=== PATIENT | female | born 1955 | race Caucasian/White ===

== ENCOUNTER → 2018-12-04 | Outpatient (CLI) | payer BC ==
--- NOTE | 2018-12-04 17:51 | MR ---
EXAMINATION TYPE: MR shoulder RT wo con DATE OF EXAM: 12/04/2018 COMPARISON: Outside right shoulder x-ray November 21, 2018 HISTORY: Pain in right shoulder per order. Ongoing pain for 1 year per patient. TECHNIQUE: Multiplanar, multisequence imaging of the right shoulder is performed without contrast. FINDINGS: Examination was suboptimal as there is motion artifact degradation present. Repeat imaging was performed. Rotator Cuff: Distal supraspinatus and infraspinatus tendons are intact. Subscapularis tendon felt in tact. Rotator cuff muscle bulk preserved. Acromioclavicular Joint: Moderate narrowing and capsular hypertrophy. Mild spurring. Underlying fat p allison is effaced. Correlate clinically for underlying impingement. Type II downsloping acromion. Anter ior inferior tilting on sagittal images. Glenohumeral Joint: Moderate narrowing with small effusion. No significant spurring. Biceps Tendon: The long head of biceps is in normal location within bicipital groove. Bone marrow signal: Subchondral cystic change superior lateral humeral head. Other: No additional significant abnormality is appreciated. IMPRESSION: No rotator cuff tear is seen. Moderate degenerative changes. Suspect underlying impingeme nt, correlate clinically.
== END | disposition home or self-care (01) ==
LOC: RADMRIMAIN 16:28
PROVIDERS: ATTEND Orthopaedic Surgery
DX: M19.011 Primary osteoarthritis, right shoulder (principal)

== ENCOUNTER → 2018-12-08 | Outpatient (CLI) | payer BC ==
[2018-12-08 11:05] LABS: Basophils # (A) 0.1 k/uL (0-0.2); Basophils % (A) 1 %; Eosinophils # (A) 0.2 k/uL (0-0.7); Eosinophils % (A) 2 %; HCT 40.7 % (34.0-46.0); HGB 14.2 gm/dL (11.4-16.0); Lymphocytes # (A) 1.8 k/uL (1.0-4.8); Lymphocytes % (A) 24 %; MCH 28.9 pg (25.0-35.0); MCHC 34.9 g/dL (31.0-37.0); MCV 82.9 fL (80.0-100.0); Mean Platelet Volume 6.7; Monocytes # (A) 0.6 k/uL (0-1.0); Monocytes % (A) 8 %; Neutrophils # (A) 4.6 k/uL (1.3-7.7); Neutrophils % (A) 62 %; Platelet Count 230 k/uL (150-450); RBC 4.91 m/uL (3.80-5.40); WBC 7.5 k/uL (3.8-10.6)
[2018-12-08 11:12] LABS: Potassium 4.7 mmol/L (3.5-5.1)
== END | disposition home or self-care (01) ==
LOC: LABPAT 09:37
PROVIDERS: ATTEND Orthopaedic Surgery
DX: Z01.818 Encounter for other preprocedural examination (principal); Z01.812 Encounter for preprocedural laboratory examination; M75.41 Impingement syndrome of right shoulder
CPT/HCPCS: 36415; 80051; 85025; 93005

== ENCOUNTER 2018-12-21 07:53 | Day surgery (SDC) | payer BC ==
[2018-12-19 13:59] VITALS: BMI 34.9
--- NOTE | 2018-12-20 20:44 | HP ---
HISTORY AND PHYSICAL DATE OF SURGERY: 12/21/2018 Leslye Grove is a 63-year-old patient seen with progressive right shoulder pain. We discussed options for treatment. She elected to proceed with right shoulder arthroscopy. Consent regarding the procedure was obtained. PAST MEDICAL HISTORY: 1. Hypertension. 2. Gastroesophageal reflux disease. PAST SURGICAL HISTORY: Hysterectomy. DAILY MEDICATIONS: 1. Bisoprolol/hydrochlorothiazide. 2. Prilosec. ALLERGIES: TETANUS. SOCIAL HISTORY: She denies current tobacco use. PHYSICAL EVALUATION OF THE RIGHT SHOULDER: Flexion is 160 degrees, abduction 150 degrees. External rotation is 30 degrees with weakness. She is tender along the anterolateral acromion and rotator cuff insertion site. Impingement sign is positive at 90 degrees. Distal neurovascular exam is intact. RADIOGRAPHS: Radiographs of the right shoulder revealed a type 2 anterior acromion, cystic changes of the tuberosity. Right shoulder MRI revealed impingement, acromioclavicular, and glenohumeral osteoarthritic changes. IMPRESSION: 1. Right shoulder impingement with possible rotator cuff tear. 2. Right shoulder acromioclavicular and glenohumeral joint osteoarthritis. 3. Hypertension. 4. Gastroesophageal reflux disease. PLAN: Right shoulder arthroscopy with subacromial decompression, possible arthroscopic rotator cuff repair, possible Wendy procedure and debridement. MMODL / IJN: [id number] /
[~2018-12-21 07:53] MED LIST: DEXAMETHASONE SOD PHOSPHATE 10 MG/ML 1 ML VIAL IV ONE; LACTATED RINGERS 1,000 ML IV SCH; LIDOCAINE 1% 20 ML VIAL (10MG/ML) FOR IV START INTRADERMA PRN; MIDAZOLAM 2 MG/2 ML VIAL IV PRN; ONDANSETRON 4 MG/2 ML VIAL IVP ONE
[2018-12-21] MEDS ORDERED: LIDOCAINE 1% INJ 10MG/ML (20 ML MDV) ONE (09:27)
[2018-12-21] MEDS ORDERED: GLYCOPYRROLATE 0.2 MG/ML 2 ML VIAL ONE (09:27)
[2018-12-21] MEDS ORDERED: fentaNYL (PF) 50 MCG/ML 2 ML AMP ONE (09:27)
[2018-12-21] MEDS ORDERED: SUCCINYLCHOLINE CHLORIDE 100 MG/5 ML SYR IV ONE (09:27)
[2018-12-21] MEDS ORDERED: PROPOFOL 10 MG/ML 20 ML VIAL IV ONE (09:27)
[2018-12-21] MEDS ORDERED: DEXAMETHASONE SOD PHOSPHATE 4 MG/ML 1 ML VIAL ONE (09:27)
[2018-12-21] MEDS ORDERED: MIDAZOLAM 2 MG/2 ML VIAL ONE (09:27)
[2018-12-21] MEDS ORDERED: ROPIVACAINE 5 MG/ML 30 ML VIAL ONE (09:27)
--- NOTE | 2018-12-21 09:49 | P.ANPRN ---
Procedure Note - Anesthesia - Nerve Block Performed Right Interscalene Single Time Out Performed: Yes Date of Procedure: 12/21/18 Procedure Start Time: : Procedure Stop Time: 09:04 Location of Patient Procedure: PreOp Indication: Acute Post-Operative Pain, Requested by Surgeon Sedation Type: Sedate with meaningful contact maintained Preparation: Sterile Prep Position: Supine Needle Types: Pajunk Needle Gauge: 21 Ultrasound used to visualize needle placement: Yes Ultrasound used to observe medication spread: Yes Blood Aspirated: No Pain Paresthesia on Injection Noted: No Resistance on Injection: Normal Image Stored and Saved: Yes Events: Uneventful and Well Tolerated (ropi .5% 20cc plus dexamethasone 4mg)
[2018-12-21] MEDS ORDERED: LACTATED RINGERS 1,000 ML IV ONE (10:53)
--- NOTE | 2018-12-21 11:12 | P.OP ---
Date of Procedure: 12/21/18 Preoperative Diagnosis: Right shoulder impingement Postoperative Diagnosis: 1. Right shoulder rotator cuff tear 2. Right shoulder impingement 3. Right shoulder partial long head biceps tendon tear 4. Right shoulder superficial superior labral tear Procedure(s) Performed: 1. Right shoulder arthroscopic rotator cuff repair 2. Right shoulder arthroscopic subacromial decompression 3. Right shoulder arthroscopic biceps tenotomy 4. Right shoulder arthroscopic debridement labral tear Implants: 14.75 Arthrex swivel lock anchor Anesthesia: ML regional Surgeon: Artie Navas Work Car Operator #1: Taiwo Flynn Estimated Blood Loss (ml): 7 Pathology: none sent Condition: stable Disposition: PACU Indications for Procedure: 63-year-old patient seen with progressive right shoulder pain. After having treatment options discussed, she elected to proceed with arthroscopy. Operative Findings: See description of procedure Description of Procedure: Patient underwent an interscalene block by department of anesthesia for postoperative pain management. The patient was then taken to the operative suite. The patient underwent a general anesthetic by the department of anesthesia. The patient was placed into a lateral position and secured. There was appropriate padding of the bony prominence. Right shoulder was then prepped and draped in normal sterile orthopedic fashion. We placed the extremity in 10 pounds of longitudinal traction. A posterior incision was now made for a posterior working portal site. The trocar and cannula were inserted into the glenohumeral joint. Arthroscopy was initiated. Spinal needle was now inserted anteriorly, to ascertain the anterior working portal site. An incision was now made in that area, a trocar was inserted followed by a probe. There was superficial tearing of the superior labrum. The anterior labrum was somewhat diminutive but no tear was present. The posterior and inferior labrum appeared stable. There were grade 1 chondral malacia changes of the humeral head and glenoid fossa with no osteochondral tears present. There was some hyperemia and partial tearing long head biceps tendon. I performed an arthroscopic biceps tenotomy. I debrided that superficial labral tear down to stable tissue. The residual labrum appeared stable. Instruments now removed from glenohumeral joint. Utilizing the posterior working portal site, the trocar and cannula were inserted into the subacromial space. Arthroscopy initiated. I made an incision 2 fingerbreadths lateral to the acromion. I introduced my trocar followed by my ArthroCare ablator. I now began ablating thick subacromial bursal tissue, which exposed the undersurface of the anterior acromion. There was diminished subacromial space. There was a very prominent anterior acromion. A motorized bur was introduced and a subacromial decompression was performed. I also excised some osteophytes off the inferior aspect of the distal clavicle. The AC joint was visualized and noted to be moderately arthritic. I did not think enough toward a Wendy procedure. I turned my attention to the rotator cuff tendon. There was a 11.5 cm tear along the anterior aspect of the distal supraspinatus. I debrided those margins getting down to stable tendon tissue. I abraded the footprint with a motorized bur. I passed 2 everted mattress sutures through good bites of rotator cuff tendon with assistance of Darryl AGUSTIN. I now punched a hole into a footprint area for insertion of an anchor. We now passed all 4 limbs of suture through 4.75 Arthrex anchor. I introduced the eyelet into the pre-punch hole. I held the anchor in position while Darryl AGUSTIN tensional sutures and deployed the anchor with good compression of the tendon noted and good fixation noted. All residual suture limbs were now clipped. We had good compression of the tendon along the entire footprint. I injected 1 mL Renyte intra-articular. Instruments were now removed from the portal sites. All portal sites were approximated with nylon suture. Sterile dressings were applied followed by a shoulder immobilizer. Taiwo AGUSTIN assisted in this complex case. The patient was awakened, transferred to a bed, and taken to recovery in stable condition.
[2018-12-21 11:18] VITALS: TEMP 97.2
[2018-12-21 12:26] VITALS: RESP 16
[2018-12-21 12:40] VITALS: BP 119/64; PULSE 63
== END 2018-12-21 13:20 | disposition home or self-care (01) ==
LOC: OR 07:53
PROVIDERS: ATTEND Orthopaedic Surgery
DX: M75.101 Unspecified rotator cuff tear or rupture of right shoulder, not specified as traumatic (principal); M19.011 Primary osteoarthritis, right shoulder; M94.211 Chondromalacia, right shoulder; M25.711 Osteophyte, right shoulder; S43.431A Superior glenoid labrum lesion of right shoulder, initial encounter; S46.111A Strain of muscle, fascia and tendon of long head of biceps, right arm, initial encounter; K21.9 Gastro-esophageal reflux disease without esophagitis; I10 Essential (primary) hypertension; F41.9 Anxiety disorder, unspecified; F32.9 Major depressive disorder, single episode, unspecified; Z88.7 Allergy status to serum and vaccine; Z79.899 Other long term (current) drug therapy; Z90.710 Acquired absence of both cervix and uterus; X58.XXXA Exposure to other specified factors, initial encounter
CPT/HCPCS: 64415; 76942; 29827; 29826; C1713; C1765; J2250; J1100 ×2; J0690; J2405; J2001; J3010; J2795; J0330; J2704

== ENCOUNTER → 2021-01-19 | Outpatient (CLI) | payer MEDICARE ==
--- NOTE | 2021-01-19 13:23 | MR ---
EXAMINATION TYPE: MR shoulder LT wo con DATE OF EXAM: 01/19/2021 11:37 AM COMPARISON: NONE HISTORY: Left shoulder pain TECHNIQUE: Multiplanar multispin echo imaging of the left shoulder was performed. Portions of the exa mination are limited by patient motion. FINDINGS: Rotator cuff : There is thickening and heterogeneity of the supraspinatus tendon compatible with maxillofacial prosthetics dentist sunday tendinopathy. I do not see evidence for partial or complete tear. Remaining constituents of the r otator cuff are intact. Bursa: No bursal effusion or thickening is seen. Musculature: There is no muscular tear, contusion, or atrophy. Acromioclavicular joint : There are mild degenerative changes of the acromioclavicular joint. There is no anterior or lateral acromial downsloping. Osseous structures : There are no fractures or regions of abnormal bone marrow signal intensity. Long biceps tendon : The biceps tendon is normally situated within the bicipital groove. No complete or partial biceps tendon tear is present. Glenohumeral Joint fluid : There is no glenohumeral joint effusion. Cartilage and Bone : No focal hyaline cartilage defects are noted. No Hill-Sachs, reverse Hill-Sachs, or bony Bankart lesions are seen. Labrum : There are no SLAP or soft tissue Bankart lesions. No paralabral cysts are seen. OTHER FINDINGS : 1.2 cm focal fluid collection adjacent to the coracoid may reflect fluid versus gang lion cyst. IMPRESSION: 1. Chronic tendinopathy supraspinatus tendon. 2. Fluid versus ganglion cyst adjacent to the coracoid.
== END | disposition home or self-care (01) ==
LOC: RADMRIMAIN 10:48
PROVIDERS: ATTEND Orthopaedic Surgery
DX: M67.814 Other specified disorders of tendon, left shoulder (principal)

== ENCOUNTER → 2021-02-12 | Outpatient (CLI) | payer MEDICARE ==
[2021-02-12 12:46] LABS: Basophils # (A) 0.1 k/uL (0-0.2); Basophils % (A) 1 %; Eosinophils # (A) 0.1 k/uL (0-0.7); Eosinophils % (A) 1 %; HCT 40.3 % (34.0-46.0); HGB 14.2 gm/dL (11.4-16.0); Lymphocytes # (A) 1.3 k/uL (1.0-4.8); Lymphocytes % (A) 21 %; MCH 29.6 pg (25.0-35.0); MCHC 35.3 g/dL (31.0-37.0); Mean Platelet Volume 7.3; Monocytes # (A) 0.5 k/uL (0-1.0); Monocytes % (A) 8 %; Neutrophils % (A) 66 %; Platelet Count 220 k/uL (150-450); RDW 13.7 % (11.5-15.5); WBC 6.1 k/uL (3.8-10.6)
[2021-02-12 12:56] LABS: Potassium 4.3 mmol/L (3.5-5.1)
== END | disposition home or self-care (01) ==
LOC: LABPAT 11:23
PROVIDERS: ATTEND Orthopaedic Surgery
DX: Z01.818 Encounter for other preprocedural examination (principal); R00.1 Bradycardia, unspecified; R94.31 Abnormal electrocardiogram [ECG] [EKG]
CPT/HCPCS: 36415; 80051; 85025; 93005

== ENCOUNTER 2021-03-04 07:40 | Day surgery (SDC) | payer MEDICARE ==
[2021-03-02 17:40] VITALS: BMI 35.2
--- NOTE | 2021-03-03 19:56 | HP ---
HISTORY AND PHYSICAL DATE OF SURGERY: 03/04/2021 Leslye Grove is a 65-year-old patient seen with progressive left shoulder pain. Options for treatment were discussed. She elected to proceed with left shoulder arthroscopy. Consent was obtained. PAST MEDICAL HISTORY: Hypertension, gastroesophageal reflux disease. PAST SURGICAL HISTORY: Hysterectomy, right shoulder arthroscopy. DAILY MEDICATIONS: Bisoprolol/hydrochlorothiazide, estradiol. ALLERGIES: TETANUS. SOCIAL HISTORY: She denies current tobacco use. PHYSICAL EVALUATION OF THE LEFT SHOULDER: Flexion is 150 degrees, abduction is 130 degrees, external rotation is 40 degrees with weakness. Tenderness along the anterolateral acromion and rotator cuff insertion. Impingement is positive 80. Drop-arm sign positive. Distal neurovascular exam intact. Radiographs of the left shoulder revealed a type 2 acromion, acromioclavicular joint osteoarthritis and cystic changes of the greater tuberosity. Left shoulder MRI revealed rotator cuff chronic tendinitis. IMPRESSION: 1. Left shoulder impingement with possible rotator cuff tear. 2. Hypertension. PLAN: Left shoulder arthroscopy with subacromial decompression, possible arthroscopic rotator cuff repair and debridement. MMODL / IJN: [id number] /
[~2021-03-04 07:40] MED LIST changes: -DEXAMETHASONE SOD PHOSPHATE 10 MG/ML 1 ML VIAL IV ONE; +DEXAMETHASONE SOD PHOSPHATE 4 MG/ML 1 ML VIAL IV ONE; +HYDROmorphone 0.5 MG/0.5 ML SYRINGE IVP PRN; -LACTATED RINGERS 1,000 ML IV SCH; +LIDOCAINE 1% (10MG/ML) FOR IV START INTRADERMA PRN; -LIDOCAINE 1% 20 ML VIAL (10MG/ML) FOR IV START INTRADERMA PRN
[2021-03-04 08:09] VITALS: RESP 16; TEMP 97.5
[2021-03-04] MEDS ORDERED: LIDOCAINE 1% (10MG/ML) FOR IV START INTRADERMA ONE (08:19)
[2021-03-04] MEDS: LACTATED RINGERS 1,000 ML IV SCH ×2 (08:19→09:52)
[2021-03-04] MEDS ORDERED: LIDOCAINE 1% INJ 10MG/ML (20 ML MDV) ONE (09:45)
[2021-03-04] MEDS ORDERED: SUCCINYLCHOLINE CHLORIDE 100 MG/5 ML SYR IV ONE (09:45)
[2021-03-04] MEDS ORDERED: MIDAZOLAM 2 MG/2 ML VIAL ONE (09:45)
[2021-03-04] MEDS ORDERED: .fentaNYL (PF) 50 MCG/ML 2 ML AMP ONE (09:45)
[2021-03-04] MEDS ORDERED: PROPOFOL 10 MG/ML 20 ML VIAL IV ONE (09:45)
[2021-03-04] MEDS ORDERED: LACTATED RINGERS 1,000 ML IV ONE (11:25)
--- NOTE | 2021-03-04 11:39 | P.OP ---
Date of Procedure: 03/04/21 Preoperative Diagnosis: Left shoulder impingement Postoperative Diagnosis: 1. Left shoulder rotator cuff tear 2. Left shoulder impingement 3. Left shoulder acromioclavicular joint osteoarthritis 4. Left shoulder partial long head biceps tendon tear Procedure(s) Performed: 1. Left shoulder arthroscopic rotator cuff repair 2. Left shoulder arthroscopic subacromial decompression 3. Left shoulder arthroscopic Wendy procedure 4. Left shoulder arthroscopic biceps tenotomy Implants: 1-4.75 Arthrex swivel lock anchor Anesthesia: GETA, regional (Interscalene block) Surgeon: Artie Navas Stonecutter Assistant #1: Mario Marroquin Estimated Blood Loss (ml): 7 Pathology: none sent Condition: stable Disposition: PACU Indications for Procedure: 65-year-old patient seen with progressive left shoulder pain. After treatment options were discussed, she elected to proceed with arthroscopy. Operative Findings: see description of procedure Description of Procedure: Patient underwent an interscalene block by department of anesthesia. The patient was then taken to the operative suite. The patient underwent a general anesthetic by the department of anesthesia. The patient was placed into a lateral position and secured. There was appropriate padding of the bony prominence. Left shoulder was then prepped and draped in normal sterile orthopedic fashion. We placed the extremity in 10 pounds of longitudinal traction. A posterior incision was now made for a posterior working portal site. The trocar and cannula were inserted into the glenohumeral joint. Arthroscopy was initiated. Spinal needle was now inserted anteriorly, to ascertain the anterior working portal site. An incision was now made in that area, a trocar was inserted followed by a probe. There was some superficial fraying of the superior labrum. There was some partial tearing and hyperemia long head biceps tendon. There were grade 1 chondromalacia changes of the glenohumeral joint without osteochondral tears. The remaining labrum was stable. I performed an arthroscopic biceps tenotomy. I debrided that superficial fraying of the superior labrum. The residual labrum was probed and found to be stable. Instruments were now removed from the glenohumeral joint. Utilizing the posterior working portal site, the trocar and cannula were inserted into the subacromial space. Arthroscopy initiated. I made an incision 2 fingerbreadths lateral to the acromion. I introduced my trocar followed by my ArthroCare ablator. I now began ablating thick subacromial bursal tissue, which exposed the undersurface of the anterior acromion. There was diminished subacromial space. There was a very prominent anterior acromion. A motorized bur was introduced and a subacromial decompression was performed. I also excised some osteophytes off the inferior aspect of the distal clavicle. The AC joint was visualized and noted to be fairly arthritic. The motorized bur was introduced in the anterior portal site and a Wendy procedure was performed without difficulty, decompressing the AC joint nicely. I turned my attention to the rotator cuff. There was a 1 cm rotator cuff tear involving the posterior aspect of the distal supraspinatus. I debrided the margins getting down to stable tendon tissue. The defect measured approximately 1.5 cm. I abraded the footprint with a motorized bur. With the assistance of Mario AGUSTIN I passed 3 everted mattress sutures through good bites of rotator cuff tendon. I now punched a hole in the footprint for insertion of an anchor. I now passed all 6 limbs of suture through the eyelet of a 4.75 Arthrex swivel lock anchor. I now placed the eyelet into the pre-punch hole. I held it in position while Mario AGUSTIN tensioned all the sutures and deployed the anchor with good fixation noted. All residual suture limbs were now clipped. We had good compression of the tendon along the entire footprint. Instruments now removed from the portal sites. All portal sites were approximated with nylon suture. Sterile dressings were applied followed by a shoulder sling. Mario AGUSTIN assisted in this complex case. The patient was awakened, transferred to a bed, and taken to recovery in stable condition.
[2021-03-04 13:35] VITALS: BP 111/70; PULSE 67
--- NOTE | 2021-03-05 18:54 | P.ANPRN ---
Procedure Note - Anesthesia - Nerve Block Performed Left Interscalene Single Time Out Performed: Yes Date of Procedure: 03/04/21 Procedure Start Time: 09:04 Procedure Stop Time: 09:10 Location of Patient: PreOp Indication: Acute Post-Operative Pain, Requested by Surgeon Sedation Type: Sedate with meaningful contact maintained Preparation: Sterile Prep Position: Supine Needle Types: Pajunk Needle Gauge: 21 Ultrasound used to visualize needle placement: Yes Ultrasound used to observe medication spread: Yes Blood Aspirated: No Pain Paresthesia on Injection Noted: No Resistance on Injection: Normal Image Stored and Saved: Yes Events: Uneventful and Well Tolerated (ropi .5% 20cc plus dexamethasone 4mg)
== END 2021-03-04 14:02 | disposition home or self-care (01) ==
LOC: OR 07:40
PROVIDERS: ATTEND Orthopaedic Surgery
DX: M75.102 Unspecified rotator cuff tear or rupture of left shoulder, not specified as traumatic (principal); M25.812 Other specified joint disorders, left shoulder; S46.112A Strain of muscle, fascia and tendon of long head of biceps, left arm, initial encounter; F41.9 Anxiety disorder, unspecified; M19.012 Primary osteoarthritis, left shoulder; E78.5 Hyperlipidemia, unspecified; I10 Essential (primary) hypertension; K21.9 Gastro-esophageal reflux disease without esophagitis; Z79.899 Other long term (current) drug therapy; Z88.7 Allergy status to serum and vaccine
CPT/HCPCS: 64415; 76942; 29827; 29828; 29826; C1713 ×2; J2250; J1100; J0690; J2405; J2001; J3010; J0330; J2704

== ENCOUNTER → 2023-02-08 | Outpatient (CLI) | payer MEDICARE ==
--- NOTE | 2023-02-08 14:58 | CT ---
EXAMINATION TYPE: CT abdomen pelvis w con DATE OF EXAM: 02/08/2023 COMPARISON: None HISTORY: MID TO LEFT LOWER ABDOMINAL PAIN AND CRAMPING WITH SHARP SUBSTERNAL CHEST PAIN. CT DLP: COMBINED 2068.40 mGycm CONTRAST: CT scan of the abdomen and pelvis is performed without Oral Contrast and with IV Contrast, patient in jected with 80ML mL of Isovue 300. FINDINGS: LUNG BASES-: No visible nodule. No infiltrate. LIVER/GB: No calcified gallstones. Hepatomegaly with underlying hepatic steatosis. No space occupyi ng hepatic lesion. Biliary tree is of normal caliber. PANCREAS: No inflammation. No distinct mass. SPLEEN: No splenic enlargement. No lesion seen. ADRENALS: No nodule. No thickening. KIDNEYS/BLADDER: No hydronephrosis. No nephrolithiasis. No distinct renal mass. Urinary bladder g rossly unremarkable. BOWEL: Normal appendix. Normal bowel caliber. No inflammation. GENITAL ORGANS: No gross abnormality. LYMPH NODES: No greater than 1cm abdominal or pelvic lymph nodes are appreciated. AORTA: No significant abnormality. OSSEOUS STRUCTURES: No significant abnormality is seen. OTHER: There is a 6.7 x 3.5 cm fat-containing hernia left-sided infraumbilical region. IMPRESSION: 1. Hepatomegaly with underlying hepatic steatosis. 2. No acute intra-abdominal process visualized. 3. Fat-containing infraumbilical hernia to the left of midline.
--- NOTE | 2023-02-08 15:07 | CT ---
EXAMINATION TYPE: CT chest wo con DATE OF EXAM: 02/08/2023 COMPARISON: None HISTORY: MID TO LEFT LOWER ABDOMINAL PAIN AND CRAMPING WITH SHARP SUBSTERNAL CHEST PAIN. CT DLP: COMBINED 2068.[address] of the chest was performed with lung and mediastinal window settings submitted. The la ck of contrast limits evaluation of the vascular, mediastinal and parenchymal structures including th e upper abdomen. LUNGS: The lungs are clear and free of infiltrate. No atelectasis. No pulmonary nodule or mass is de tected. No pleural effusion. No CT evidence of interstitial lung disease. MEDIASTINUM/JAIMEE: Thoracic aorta is of normal caliber with limited evaluation given lack of contrast . The heart is not enlarged. No evidence for mediastinal mass. No lymph nodes greater than 1cm. UPPER ABDOMEN: Hepatomegaly with underlying hepatic steatosis and mild elevation right hemidiaphragm with focal eventration seen. OTHER: No significant other abnormality. IMPRESSION: 1. Hepatomegaly with underlying hepatic steatosis and mild elevation right hemidiaphragm with focal eventration seen.
== END | disposition home or self-care (01) ==
LOC: RADCTMAIN 14:12
PROVIDERS: ATTEND Student in an Organized Health Care Education/Training Program
DX: K76.0 Fatty (change of) liver, not elsewhere classified (principal); K42.9 Umbilical hernia without obstruction or gangrene; R16.0 Hepatomegaly, not elsewhere classified; R10.32 Left lower quadrant pain; R05.3 Chronic cough; J98.6 Disorders of diaphragm
CPT/HCPCS: 71250; 74177; Q9967

== ENCOUNTER 2023-06-12 17:51 | Emergency (ER) | payer MEDICARE ==
--- NOTE | 2023-06-12 18:25 | ED ---
General Adult HPI - General Chief complaint: Abdominal Pain Stated complaint: abd pain Time Seen by Provider: 06/12/23 17:57 Source: patient Mode of arrival: ambulatory Limitations: no limitations - History of Present Illness Initial comments: Dictation was produced using [employer] dictation software. please excuse any grammatical, word or spelling errors. Chief Complaint: 68-year-old female presents to the emergency department for abdominal pain History of Present Illness: Patient 68-year-old female presents to the emergency department for several days of abdominal pain and GI bleeding. Patient states that there is streaks of blood in her diarrhea. She does complain of pain in the lower suprapubic and left lower quadrant area. Denies any fever, chills or night sweats. Denies any history of diverticulitis. She knows that she has a infraumbilical hernia. Denies any nausea or vomiting. The ROS documented in this emergency department record has been reviewed and confirmed by me. Those systems with pertinent positive or negative responses have been documented in the HPI. All other systems are other negative and/or noncontributory. - Related Data Home Medications Medication Instructions Recorded Confirmed Citalopram Hydrobromide [CeleXA] 20 mg PO QAM 01/14/16 03/04/21 estradioL [Estrace] 1 mg PO QAM 01/14/16 03/04/21 Cholecalciferol [Vitamin D3 (25 125 mcg PO DAILY 12/19/18 03/02/21 Mcg = 1000 Iu)] Bisoprolol-Hctz 5-6.25 mg [Ziac 1 tab PO DAILY 03/02/21 03/04/21 5-6.25 MG] Cyanocobalamin (Vitamin B-12) 5,000 mcg PO DAILY 03/02/21 03/02/21 [Vitamin B-12] Fenofibrate Nanocrystallized 145 mg PO DAILY 03/02/21 03/04/21 [Fenofibrate] Ibuprofen [Motrin Ib] 400 - 600 mg PO Q8H PRN 03/02/21 03/02/21 Solifenacin Succinate [Vesicare] 10 mg PO DAILY 03/02/21 03/04/21 Previous Rx's Medication Instructions Recorded HYDROcodone/APAP 5-325MG [[place] 1 tab PO Q6HR PRN 3 Days #27 tab 03/04/21 5-325] Allergies Allergy/AdvReac Type Severity Reaction Status Date / Time Tetanus Vaccines and Toxoid AdvReac swelling Verified 06/12/23 17:56 [Tetanus Vaccines & Toxoid] at injection site Review of Systems ROS Statement: Those systems with pertinent positive or pertinent negative responses have been documented in the HPI. ROS Other: All systems not noted in ROS Statement are negative. Past Medical History Past Medical History: GERD/Reflux, Hypertension Additional Past Medical History / Comment(s): rt shoulder discomfort,Hx OVE RACTIVE BLADDER History of Any Multi-Drug Resistant Organisms: None Reported Past Surgical History: Appendectomy, Hysterectomy Additional Past Surgical History / Comment(s): SINUS SX. RHINOPLASTY. COLONOSCOPY. TONGUE SURGERY Past Anesthesia/Blood Transfusion Reactions: No Reported Reaction Additional Past Anesthesia/Blood Transfusion Reaction / Comment(s): no problems with prior blood transfusion Past Psychological History: Anxiety Smoking Status: Never smoker Past Alcohol Use History: Occasional Past Drug Use History: None Reported - Past Family History Mother Family Medical History: Cancer Additional Family Medical History / Comment(s): BREAST General Exam - General Exam Comments Initial Comments: PHYSICAL EXAM: General Impression: Alert and oriented x3, not in acute distress HEENT: Normocephalic atraumatic, extra-ocular movements intact, pupils equal and reactive to light bilaterally, mucous membranes moist. Cardiovascular: Heart regular rate and rhythm Chest: Able to complete full sentences, no retractions, no tachypnea Abdomen: abdomen soft, n palpatory tenderness to the left lower quadrant, non-distended, no organomegaly Musculoskeletal: Pulses present and equal in all extremities, no peripheral edema Motor: no focal deficits noted Neurological: CN II-XII grossly intact, no focal motor or sensory deficits noted Skin: Intact with no visualized rashes Psych: Normal affect and mood Limitations: no limitations Course Vital Signs 06/12/23 17:54 Temperature 98 F Pulse Rate 72 Respiratory 18 Rate Blood Pressure 126/72 O2 Sat by Pulse 99 Oximetry Medical Decision Making - Medical Decision Making Was pt. sent in by a medical professional or institution (, PA, DOMESTIC FREIGHT FORWARDER, urgent care, hospital, or half-way...) When possible be specific @ -No Did you speak to anyone other than the patient for history (EMS, parent, family, police, friend...)? What history was obtained from this source @ -No Did you review nursing and triage notes (agree or disagree)? Why? @ -I reviewed and agree with nursing and triage notes Were old charts reviewed (outside hosp., previous admission, EMS record, old EKG, old radiological studies, urgent care reports/EKG's, half-way records)? Report findings @ -No old charts were reviewed Differential Diagnosis (chest pain, altered mental status, abdominal pain women, abdominal pain men, vaginal bleeding, musculoskeletal, weakness, fever, dyspnea, syncope, headache, dizziness, GI bleed, back pain, seizure, CVA, palpatations, mental health)? @ -Differential Abdominal Pain Women: Appendicitis, Cholecystitis, diverticulosis, ischemic bowel, pancreatitis, hepatitis, UTI, gastroenteritis, AAA, incarcerated hernia, bowel obstruction, constipation, inflammatory bowel, hepatitis, peptic ulcer disease, splenic infarction, perforated viscus, vulvitis, ovarian torsion, PID, kidney stone, placenta abruption, this is not meant to be an all-inclusive list EKG interpreted by me (3pts min.). @ -None done X-rays interpreted by me (1pt min.). @ -None done CT interpreted by me (1pt min.). @ -CT of the abdomen and pelvis shows colitis to the ascending colon U/S interpreted by me (1pt. min.). @ -None done What testing was considered but not performed or refused? (CT, X-rays, U/S, labs)? Why? @ -None What meds were considered but not given or refused? Why? @ -None Did you discuss the management of the patient with other professionals (professionals i.e. DrRenee, PA, DOMESTIC FREIGHT FORWARDER, lab, RT, psych nurse, older adult social work specialist, electrician third, teacher, wildlife officer, welfare case worker)? Give summary @ -No Was smoking cessation discussed for >3mins.? @ -No Was critical care preformed (if so, how long)? @ -No Were there social determinants of health that impacted care today? How? (Homelessness, low income, unemployed, alcoholism, drug addiction, transportation, low edu. Level, literacy, decrease access to med. care, [facility], rehab)? @ -No Was there de-escalation of care discussed even if they declined (Discuss DNR or withdrawal of care, Hospice)? DNR status @ -No What co-morbidities impacted this encounter? (DM, HTN, Smoking, COPD, CAD, Cancer, CVA, ARF, Chemo, Hep., AIDS, mental health diagnosis, sleep apnea, morbid obesity)? @ -None Was patient admitted / discharged? Hospital course, mention meds given and route, prescriptions, significant lab abnormalities, going to OR and other pertinent info. @ -60-year-old female presents emergency department with abdominal cramping diarrhea. Vital signs upon arrival are within acceptable limits. Patient well- appearing at bedside. She does not have any postprandial or pain with eating. States that she does have some cramping diarrhea. Laboratory evaluation is unremarkable. CT shows nonspecific colitis. Patient states that she had been taking antibiotics recently prescribed by primary care doctor's office for respiratory infection. Suspect that patient experiencing adverse effects secondary to antibiotic use. Patient has antidiarrhea medications at home that she is encouraged to use. She otherwise she is told to follow-up with her primary care doctor Undiagnosed new problem with uncertain prognosis? @ -No Drug Therapy requiring intensive monitoring for toxicity (Heparin, Nitro, Insulin, Cardizem)? @ -No Were any procedures done? @ -No Diagnosis/symptom? Acute, or Chronic, or Acute on Chronic? Uncomplicated (without systemic symptoms) or Complicated (systemic symptoms)? @ -Colitis Side effects of treatment? @ -No Exacerbation, Progression, or Severe Exacerbation? @ -No Poses a threat to life or bodily function? How? (Chest pain, USA, NC, pneumonia, PE, COPD, DKA, ARF, appy, cholecystitis, CVA, Diverticulitis, Homicidal, Suicidal, threat to staff... and all critical care pts) @ -No - Lab Data Result diagrams: 06/12/23 19:00 06/12/23 19:00 Lab Results 06/12/23 06/12/23 Range/Units 19:00 19:00 WBC 11.0 H (3.8-10.6) k/uL RBC 4.62 (3.80-5.40) m/uL Hgb 13.4 (11.4-16.0) gm/dL Hct 37.8 (34.0-46.0) % MCV 81.9 (80.0-100.0) fL MCH 29.1 (25.0-35.0) pg MCHC 35.6 (31.0-37.0) g/dL RDW 14.3 (11.5-15.5) % Plt Count 208 (150-450) k/uL MPV 7.1 Neutrophils % 82 % Lymphocytes % 11 % Monocytes % 5 % Eosinophils % 1 % Basophils % 0 % Neutrophils # 9.0 H (1.3-7.7) k/uL Lymphocytes # 1.3 (1.0-4.8) k/uL Monocytes # 0.6 (0-1.0) k/uL Eosinophils # 0.1 (0-0.7) k/uL Basophils # 0.0 (0-0.2) k/uL Hyperchromasia Slight Sodium 138 (137-145) mmol/L Potassium 4.3 (3.5-5.1) mmol/L Chloride 107 (98-107) mmol/L Carbon Dioxide 23 (22-30) mmol/L Anion Gap 8 mmol/L BUN 15 (7-17) mg/dL Creatinine 1.11 H (0.52-1.04) mg/dL Est GFR (CKD-EPI)AfAm 59 (>60 ml/min/1.73 sqM) Est GFR (CKD-EPI)NonAf 51 (>60 ml/min/1.73 sqM) Glucose 109 H (74-99) mg/dL Calcium 9.1 (8.4-10.2) mg/dL Total Bilirubin 0.6 (0.2-1.3) mg/dL AST 23 (14-36) U/L ALT 27 (4-34) U/L Alkaline Phosphatase 51 (38-126) U/L Total Protein 6.0 L (6.3-8.2) g/dL Albumin 3.9 (3.5-5.0) g/dL Disposition Clinical Impression: Colitis Disposition: HOME SELF-CARE Condition: Fair Instructions (If sedation given, give patient instructions): Colitis (ED) Is patient prescribed a controlled substance at d/c from ED?: No Referrals: Bianca Cesar MD [Primary Care Provider] - 1-2 days Time of Disposition: 20:36
[2023-06-12 18:53] VITALS: PULSE 72; TEMP 98
[2023-06-12 19:26] LABS: Basophils % (A) 0 %; Eosinophils # (A) 0.1 k/uL (0-0.7); Eosinophils % (A) 1 %; HCT 37.8 % (34.0-46.0); HGB 13.4 gm/dL (11.4-16.0); Hyperchromasia Slight; Lymphocytes # (A) 1.3 k/uL (1.0-4.8); Lymphocytes % (A) 11 %; MCH 29.1 pg (25.0-35.0); MCHC 35.6 g/dL (31.0-37.0); MCV 81.9 fL (80.0-100.0); Mean Platelet Volume 7.1; Monocytes # (A) 0.6 k/uL (0-1.0); Monocytes % (A) 5 %; Neutrophils % (A) 82 %; Platelet Count 208 k/uL (150-450); RBC 4.62 m/uL (3.80-5.40); RDW 14.3 % (11.5-15.5)
[2023-06-12 19:31] LABS: ALT 27 U/L (4-34); AST 23 U/L (14-36); African American GFR (CKD) 59 (>60 ml/min/1.73 sqM); Albumin 3.9 g/dL (3.5-5.0); Alkaline Phosphatase 51 U/L (38-126); Anion Gap 8 mmol/L; Blood Urea Nitrogen 15 mg/dL (7-17); Calcium 9.1 mg/dL (8.4-10.2); Carbon Dioxide 23 mmol/L (22-30); Chloride 107 mmol/L (98-107); Glucose 109 mg/dL (74-99); Non-African American GFR(CKD) 51 (>60 ml/min/1.73 sqM); Potassium 4.3 mmol/L (3.5-5.1); Sodium 138 mmol/L (137-145); Total Bilirubin 0.6 mg/dL (0.2-1.3)
--- NOTE | 2023-06-12 20:12 | CT ---
EXAMINATION TYPE: CT abdomen pelvis w con CT DLP: 1478.5 mGycm, Automated exposure control for dose reduction was used. DATE OF EXAM: 06/12/2023 7:50 PM COMPARISON: None. CLINICAL INDICATION:Female, 68 years old with history of suspect diverticulitis; r/o diverticulitis. umbilical abd pain. TECHNIQUE: Axial CT of the abdomen and pelvis. Sagittal and coronal reformats were created on a [employer] workstation. Contrast used:80ml mL of Isovue 370 with IV Contrast, (none if empty) Oral contrast used: without Oral Contrast (none if empty) FINDINGS: LOWER CHEST: Heart is mildly enlarged. No pericardial or pleural effusion. Dependent opacities in the lower lobes consistent with subsegmental atelectasis. Small focus of infiltrate or atelectasis in th e lingula. ABDOMEN LIVER: Diaphragmatic eventration is present. There is some protrusion of the hepatic dome up into the chest. Diffuse hepatic low attenuation consistent with hepatic steatosis. No focal lesion is seen. P ortal veins are enhancing. GALLBLADDER AND BILE DUCTS: There may be a tiny gallstone, otherwise unremarkable. PANCREAS: Unremarkable. SPLEEN: Unremarkable. ADRENAL GLANDS: Unremarkable. KIDNEYS AND URETERS: Kidneys enhance symmetrically. No evidence of hydronephrosis or visible renal ca lculus. The ureters are unremarkable. Developmental transverse lie of the right kidney noted. PELVIS BLADDER: Unremarkable REPRODUCTIVE: The uterus appears absent, correlate for hysterectomy. Ovaries are not clearly seen, t here is no evidence of pelvic mass. ABDOMEN & PELVIS STOMACH AND BOWEL: Stomach and small bowel are nondistended, no evidence of obstruction. The append ix is not definitively visualized. Ileocecal valve is fatty infiltrated. There is wall thickening of the right colon extending from the cecum through the mid to distal transverse colon with adjacent per icolonic fat stranding and minimal fluid along the right paracolic gutter. A discretely inflamed div erticulum is not seen. PERITONEUM/RETROPERITONEUM: No evidence of pneumoperitoneum, or free fluid otherwise detected. VASCULATURE: Moderate atherosclerotic calcifications are present throughout the abdominal aorta and i ts branches. No evidence of aortic aneurysm. LYMPH NODES: No gross evidence for lymphadenopathy. SOFT TISSUE/ABDOMINAL WALL: Unremarkable MUSCULOSKELETAL: No acute osseous abnormalities. Moderate disc degeneration changes are present throu ghout the thoracolumbar spine. Trace degenerative anterolisthesis of L4 on L5, anterolisthesis L5 on S1. This results in mild to moderate spinal canal stenosis, moderate to severe bilateral neural ronaldo inal stenosis L5-S1. Small nonspecific focus of sclerosis deep to the superior endplate of L3, a few tiny sclerotic lesions in the sacrum, right iliac wing, proximal right femur. No destructive bone les ion is seen. IMPRESSION: Inflammatory changes of the right colon suggesting acute nonspecific colitis.
[2023-06-12 21:35] VITALS: BP 126/71; RESP 16
== END 2023-06-12 21:06 | disposition home or self-care (01) ==
LOC: EC 17:51
DX: K52.9 Noninfective gastroenteritis and colitis, unspecified (principal); N32.81 Overactive bladder; I10 Essential (primary) hypertension; K21.9 Gastro-esophageal reflux disease without esophagitis; F41.9 Anxiety disorder, unspecified; Z79.899 Other long term (current) drug therapy; Z88.7 Allergy status to serum and vaccine
CPT/HCPCS: 36415; 80053; 85025; 74177; 99284; Q9967

== ENCOUNTER 2023-09-28 08:15 | Day surgery (SDC) | payer MEDICARE ==
[2023-09-27 09:41] VITALS: BMI 33.3
[2023-09-28 08:54] VITALS: TEMP 97.4
[2023-09-28] MEDS: IV FLUID CONTINUATION 1,000 ML IV ONE (09:02)
[2023-09-28] MEDS: LACTATED RINGERS 1,000 ML IV SCH (09:03)
[2023-09-28] MEDS ORDERED: PROPOFOL 10 MG/ML 20 ML VIAL IV ONE (09:41)
--- NOTE | 2023-09-28 10:00 | P.PCN ---
Date of Procedure: 09/28/23 Procedure(s) Performed: BRIEF HISTORY: Patient is a 68-year-old pleasant white female scheduled for an elective colonoscopy as a part of evaluation of change in bowel habits. PROCEDURE PERFORMED: Colonoscopy. PREOPERATIVE DIAGNOSIS: Change in bowel habits. IV sedation per Anesthesia. PROCEDURE: After informed consent was obtained, the patient, was brought into the endoscopy unit. IV sedation was administered by Anesthesia under continuous monitoring. Digital rectal examination was normal. Initially the Olympus CF-160 flexible video colonoscope was then inserted in the rectum, gradually advanced into the cecum without any difficulty. Careful examination was performed as the scope was gradually being withdrawn. Ileocecal valve and the appendiceal orifice were visualized and appeared normal. Prep was excellent. Mucosa of the cecum, ascending colon, transverse colon, descending colon, sigmoid colon, and rectum appeared normal. Retroflexion was performed in the rectum and no lesions were seen. The patient tolerated the procedure well. IMPRESSION: Normal-appearing colon from rectum to cecum with no evidence of colorectal neoplasia. RECOMMENDATIONS: Findings of this examination were discussed with the patient as well as her family. She was advised to be on high-fiber diet and take fiber supplements on a regular basis. Recommended repeat colonoscopy in 10 years..
[2023-09-28 10:11] VITALS: RESP 16
[2023-09-28 10:22] VITALS: BP 109/71; PULSE 80
== END 2023-09-28 10:32 | disposition home or self-care (01) ==
LOC: ORWHC2ENDO 08:15
PROVIDERS: ATTEND Internal Medicine Gastroenterology
DX: R19.4 Change in bowel habit (principal); I10 Essential (primary) hypertension; E78.5 Hyperlipidemia, unspecified; K21.9 Gastro-esophageal reflux disease without esophagitis; F41.9 Anxiety disorder, unspecified; Z88.7 Allergy status to serum and vaccine; Z87.891 Personal history of nicotine dependence; Z79.899 Other long term (current) drug therapy
CPT/HCPCS: 45378; J2704

== ENCOUNTER → 2023-11-21 | Outpatient (CLI) | payer MEDICARE ==
--- NOTE | 2023-11-21 09:06 | MR ---
EXAMINATION TYPE: MR lumbar spine wo con DATE OF EXAM: 11/21/2023 COMPARISON: X-ray 11/17/2023 HISTORY: Back pain TECHNIQUE: T1 and T2 axial and sagittal images of the lumbar spine are submitted. FINDINGS: There is no abnormal signal seen within the visualized spinal cord or paraspinal soft tissu es. At L1-2 there is no disc herniation or canal stenosis. There is facet arthropathy. Neural foramina re main patent. At L2-3 there is grade 1 retrolisthesis with mild degenerative disc disease. Mild hypertrophic change of the facet joints. No disc herniation or canal stenosis. Mild bilateral foraminal encroachment. At L3-4 there is vertebral body hemangioma. Mild degenerative disc disease. There is advanced facet a rthropathy and mild bilateral foraminal encroachment. There is abnormal signal seen in the lateral re cess on the right suspicious for a sequestered or extruded disc fragment posterior to the upper yoel n of the L4 vertebral body. At L4-5 there is advanced facet arthropathy with mild degenerative disc disease and grade 1 anterolis thesis. No canal stenosis or focal herniation. At L5-S1 there is moderate to severe degenerative disc disease with facet arthropathy. This results i n mild right and moderate left foraminal encroachment. IMPRESSION: 1. At L3-L4 there is abnormal signal seen in the right lateral recess posterior to the upper margin o f the L4 vertebral segment suspicious for disc herniation with sequestered or extruded fragment. Cons ider follow-up MRI contrast for further evaluation.
== END | disposition home or self-care (01) ==
LOC: RADMRIMAIN 05:53
PROVIDERS: ATTEND Orthopaedic Surgery
DX: M47.27 Other spondylosis with radiculopathy, lumbosacral region (principal); M51.17 Intervertebral disc disorders with radiculopathy, lumbosacral region; M47.812 Spondylosis without myelopathy or radiculopathy, cervical region; M43.16 Spondylolisthesis, lumbar region
CPT/HCPCS: 72148

== ENCOUNTER → 2024-01-26 | Outpatient (CLI) | payer MEDICARE ==
[~2024-01-26] MED LIST changes: -DEXAMETHASONE SOD PHOSPHATE 4 MG/ML 1 ML VIAL IV ONE; +DOBUTamine DRIP for NUC MED 500 MG in DEXTROSE/WATER 1 250ML.BAG IV PRN; -HYDROmorphone 0.5 MG/0.5 ML SYRINGE IVP PRN; -LIDOCAINE 1% (10MG/ML) FOR IV START INTRADERMA PRN; -MIDAZOLAM 2 MG/2 ML VIAL IV PRN; -ONDANSETRON 4 MG/2 ML VIAL IVP ONE
--- NOTE | 2024-01-26 12:31 | CA ---
Dobutamine Stress Echocardiogram Report Leslye Grove Age: 68 Gender: F : 1955 Exam Date: 01/26/2024 10:23 Exam Location: [facility] Ordering Physician: Bianca Cesar MD Referring Physician: [id number] Park Keeper: Karlene Enciso RDCS Technologist: Ht (in): 65 Wt (lb): 190 Procedure CPT: Indication: R07.89 Chest pain on exertion ICD-9 Codes: Rhythm: Patient History: CHEST PAIN, HTN, HYPERCHOLESTEROLEMIA, FAMILY HX OF HEART DISEASE, PRIOR SMOKER Cardiac Medications: Medications in past 24 hours: Contrast: N/A Total Dose (mL): Stress Results Protocol: Dobutamine Peak Dose (???g/kg/min): 40 Duration (min:sec): Atropine:(mg) Target HR: 129 Double Product: [id number] Resting HR: 59 Resting BP: 114 / 65 Peak HR: 138 Peak BP: 160 / 48 Max Predicted HR: 152 91 % Max Predicted HR Stress Summary: BP Response: Reason for Termination: TARGET HR Cardiac Symptoms: NO SYMPTOMS ECG Analysis Resting EKG: Normal sinus rhythm normal axis normal intervals Stress EKG: Patient was given intravenous dobutamine over the. Of 12 minutes as per protocol did not have chest pain there was half a millimeter ST segment depression noted in the inferolateral leads and 85% of predicted maximal heart rate was obtained Arrhythmia: Echo Analysis Base Echo Analysis: Normal left ventricular size wall motion and systolic function Low Echo Anaylsis: Normal Peak Echo Analysis: Normal hyperdynamic response Recovery Echo: Normal MEASUREMENTS (Male/Female) Normal Values CONCLUSIONS Negative dobutamine stress echo Dr. Brayan Ramon MD (Electronically Signed) Final Date: 26 January 2024 12:30
== END | disposition home or self-care (01) ==
LOC: RADNMMAIN 08:58
PROVIDERS: ATTEND Student in an Organized Health Care Education/Training Program
CPT/HCPCS: 93351

== ENCOUNTER → 2024-02-09 | Outpatient (CLI) | payer MEDICARE ==
[2024-02-09 16:00] LABS: Basophils # (A) 0.04 X 10*3/uL (0.00-0.10); Basophils % (A) 0.7 %; Eosinophils # (A) 0.03 X 10*3/uL (0.04-0.35); Eosinophils % (A) 0.5 %; HCT 39.6 % (37.2-46.3); HGB 13.7 g/dL (12.0-15.0); Lymphocytes # (A) 1.03 X 10*3/uL (0.90-5.00); Lymphocytes % (A) 18.4 %; MCH 28.7 pg (27.0-32.0); MCHC 34.6 g/dL (32.0-37.0); Monocytes # (A) 0.43 X 10*3/uL (0.20-1.00); Monocytes % (A) 7.7 %; NRBC Per 100 WBC 0 X 10*3/uL (0.00-0.01); Neutrophils # (A) 4.06 X 10*3/uL (1.80-7.70); Neutrophils % (A) 72.3 %; Platelet Count 247 X 10*3/uL (140-440); RBC 4.77 X 10*6/uL (4.10-5.20); RDW 12.9 % (11.5-14.5); WBC 5.61 X 10*3/uL (4.50-10.00)
[2024-02-09 16:16] LABS: ALT 12 U/L (8-44); AST 13 U/L (13-35); Albumin 4.5 g/dL (3.8-4.9); Albumin/Globulin Ratio 2.37 Ratio (1.60-3.17); Alkaline Phosphatase 59 U/L (41-126); BUN/Creat Ratio 12.09 Ratio (12.00-20.00); Blood Urea Nitrogen 13.3 mg/dL (9.0-27.0); Calcium 9.9 mg/dL (8.7-10.3); Carbon Dioxide 25.8 mmol/L (21.6-31.8); Chloride 105 mmol/L (96-109); Globulin 1.9 g/dL (1.6-3.3); Glucose 98 mg/dL (70-110); Potassium 4.5 mmol/L (3.5-5.5); Sodium 142 mmol/L (135-145); Total Bilirubin 0.4 mg/dL (0.3-1.2); Total Protein 6.4 g/dL (6.2-8.2)
[2024-02-09 18:35] LABS: INR 1.08 sec (0.93-1.11); Prothrombin Time 11.6 sec (9.9-11.9)
--- NOTE | 2024-02-09 20:50 | XR ---
EXAMINATION TYPE: XR chest 2V DATE OF EXAM: 02/09/2024 12:13 PM COMPARISON: None. CLINICAL INDICATION: Female, 68 years old with history of Pre surgical, history of substernal chest p ain TECHNIQUE: XR chest 2V view(s) obtained. FINDINGS: The heart size is normal. The pulmonary vasculature is normal. The lungs are clear. IMPRESSION: 1. No acute pulmonary process. [facility], , 02/09/2024 8:47 PM
== END | disposition home or self-care (01) ==
LOC: LABPAT 10:00
PROVIDERS: ATTEND Orthopaedic Surgery
DX: Z01.818 Encounter for other preprocedural examination (principal); M43.16 Spondylolisthesis, lumbar region; R06.02 Shortness of breath; Z22.322 Carrier or suspected carrier of Methicillin resistant Staphylococcus aureus
CPT/HCPCS: 71046; 80053; 82306; 85025; 85610; 86850; 86900; 86901; 87070

== ENCOUNTER 2024-02-16 05:34 | Day surgery (SDC) | payer MEDICARE ==
[2024-02-10 11:28] VITALS: BMI 31.2
[~2024-02-16 05:34] MED LIST changes: -DOBUTamine DRIP for NUC MED 500 MG in DEXTROSE/WATER 1 250ML.BAG IV PRN; +ONDANSETRON 4 MG/2 ML VIAL IVP PRN; +TRANEXAMIC 1,000 MG/100ML-NACL 1,000 MG in SALINE 1 100ML.BAG IVPB PRN
[2024-02-16] MEDS ORDERED: MIDAZOLAM 2 MG/2 ML VIAL IV PRN (06:13)
[2024-02-16] MEDS ORDERED: LIDOCAINE 1% (10MG/ML) FOR IV START INTRADERMA PRN (06:13)
[2024-02-16] MEDS ORDERED: fentaNYL (PF) 50 MCG/ML 2 ML AMP IVP PRN (06:13)
[2024-02-16] MEDS: IV FLUID CONTINUATION 1,000 ML IV ONE ×3 (06:51→06:53)
[2024-02-16] MEDS: GABAPENTIN 300 MG CAP PO PRN (06:54)
[2024-02-16] MEDS: ACETAMINOPHEN TAB 500 MG TAB PO PRN (06:54)
[2024-02-16] MEDS: DEXAMETHASONE SOD PHOSPHATE 4 MG/ML 1 ML VIAL IV ONE (06:56)
[2024-02-16] MEDS: LACTATED RINGERS 1,000 ML IV SCH (06:56)
[2024-02-16] MEDS: ONDANSETRON 4 MG/2 ML VIAL IVP ONE (06:56)
--- NOTE | 2024-02-16 07:12 | P.HPOR ---
History of Present Illness H&P Date: 02/09/24 .D:Date: 02/09/24 : 01:43pm .T:Title: Preoperative Assessment Patient: Leslye Grove, 68-year-old female Reason for Visit: Preoperative evaluation for planned L4-S1 minimally invasive posterolateral and interbody fusion History of Present Illness: Ms. Grove returns today for her preoperative visit. She continues to experience severe low back pain, radiating into her lower extremities, with associated paresthesias and progressive weakness. Her symptoms have not improved with conservative measures, including physical therapy, home exercises, and medications. Physical Examination: Exam findings remain unchanged from the previous visit. Notable findings include: * Restricted lumbar range of motion with pain Positive straight leg raise test Decreased strength in lower extremities, particularly in dorsiflexion, plantar flexion, and extensor/flexor hallucis longus Decreased sensation in L4-L5 and L5-S1 dermatomes bilaterally Imaging Review: Recent MRI and X-rays were reviewed, confirming severe L4-S1 spondylosis, Grade 1 spondylolisthesis at L4-L5, and significant central and foraminal stenosis. Surgical Plan: L4-S1 posterolateral and interbody fusion with decompression, minimally invasive approach Surgical Risks Discussion: A comprehensive discussion of surgical risks was conducted with the patient. These include, but are not limited to: * Infection Bleeding Nerve injury or new neurological deficits Dural tear Failure to improve symptoms or recurrence of symptoms Hardware complications Need for further surgery General anesthesia risks The patient expressed understanding of these risks and wishes to proceed with surgery. Medical Necessity: Ms. Grove has failed conservative management for her severe lumbar spondylosis and spondylolisthesis. She demonstrates progressive neurological deficits and significant impact on her activities of daily living. Imaging studies confirm severe structural changes that correlate with her clinical presentation. Given the progression of her condition and the potential for further neurological deterioration, surgical intervention is deemed medically necessary to decompress neural elements, stabilize the affected segments, and potentially halt the progression of her symptoms. Plan: * Proceed with L4-S1 posterolateral and interbody fusion with decompression, minimally invasive, as scheduled Patient to complete preoperative clearances and testing as previously arranged Provided patient with preoperative instructions and reviewed postoperative care expectations Patient to call with any questions or concerns prior to surgery The patient verbalized understanding of all discussions and agreed to the surgical plan. # SIGNED BY Anuel Sarabia (Casie)02/13/2024 07:53AM Past Medical History Past Medical History: GERD/Reflux, Hyperlipidemia, Hypertension Additional Past Medical History / Comment(s): OVERACTIVE BLADDER. History of Any Multi-Drug Resistant Organisms: None Reported Past Surgical History: Appendectomy, Hysterectomy, Orthopedic Surgery Additional Past Surgical History / Comment(s): SINUS SURGERY, RHINOPLASTY, COLONOSCOPY, TONGUE SURGERY, BILATERAL ROTATOR CUFF REPAIR. Past Anesthesia/Blood Transfusion Reactions: No Reported Reaction Additional Past Anesthesia/Blood Transfusion Reaction / Comment(s): No problems with prior blood transfusion. Sister slow to wake up. Smoking Status: Former smoker - Past Family History Mother Family Medical History: Cancer Additional Family Medical History / Comment(s): BREAST CANCER. Brother(s) Family Medical History: Deep Vein Thrombosis (DVT) Medications and Allergies Home Medications Medication Instructions Recorded Confirmed Type Cholecalciferol [Vitamin D3 (25 50 mcg PO BID 12/19/18 02/16/24 History Mcg = 1000 Iu)] Bisoprolol-Hctz 5-6.25 mg [Ziac 1 tab PO QAM 03/02/21 02/16/24 History 5-6.25 MG] Solifenacin Succinate [Vesicare] 10 mg PO QAM 03/02/21 02/16/24 History Bacillus Coagulans [Digestive 1 tab PO BID 06/12/23 02/16/24 History Advantage Probiotic Chew] Citalopram Hydrobromide [CeleXA] 40 mg PO QAM 06/12/23 02/16/24 History Rosuvastatin [Crestor] 10 mg PO QAM 06/12/23 02/16/24 History Cyanocobalamin (Vitamin B-12) 1,000 mcg PO DAILY 09/27/23 02/16/24 History [Vitamin B-12] Fenofibrate,Micronized 134 mg PO QAM 09/27/23 02/16/24 History [Fenofibrate] RABEprazole SODIUM [Aciphex] 20 mg PO QAM 09/27/23 02/16/24 History Allergies Allergy/AdvReac Type Severity Reaction Status Date / Time Tetanus Vaccines and Toxoid Allergy swelling Verified 02/16/24 06:19 [Tetanus Vaccines & Toxoid] at injection site Physical Examination Osteopathic Statement: *. No significant issues noted on an osteopathic structural exam other than those noted in the History and Physical/Consult.
[2024-02-16] MEDS ORDERED: MIDAZOLAM 2 MG/2 ML VIAL ONE (07:34)
[2024-02-16] MEDS ORDERED: LIDOCAINE 1% INJ 10MG/ML (20 ML MDV) ONE (07:34)
[2024-02-16] MEDS ORDERED: GLYCOPYRROLATE 0.2 MG/ML 2 ML VIAL ONE (07:34)
[2024-02-16] MEDS ORDERED: NEOSTIGMINE 1 MG/ML 10 ML VIAL ONE (07:34)
[2024-02-16] MEDS ORDERED: TRANEXAMIC 1,000 MG/100ML-NACL PREMIX BAG ONE (07:34)
[2024-02-16] MEDS ORDERED: PHENYLEPHRINE 10 MG/ML VIAL ONE (07:34)
[2024-02-16] MEDS ORDERED: SUCCINYLCHOLINE CHLORIDE 200 MG/10 ML VIAL IV ONE (07:34)
[2024-02-16] MEDS ORDERED: PROPOFOL 10 MG/ML 20 ML VIAL IV ONE (07:34)
[2024-02-16] MEDS ORDERED: fentaNYL (PF) 50 MCG/ML 2 ML AMP ONE (07:34)
[2024-02-16] MEDS ORDERED: ROCURONIUM 10 MG/ML (5 ML VIAL) IV ONE (07:34)
[2024-02-16] MEDS: THROMBIN (BOVINE) 5,000 UNIT VIAL TOPICAL ONE (08:00)
[2024-02-16] MEDS: LACTATED RINGERS 1,000 ML IV ONE (09:47)
[2024-02-16] MEDS ORDERED: MAGNESIUM HYDROXIDE 2,400 MG/30 ML CUP PO PRN (10:39)
[2024-02-16] MEDS ORDERED: HYDROmorphone 0.5 MG/0.5 ML SYRINGE IVP PRN (10:39)
[2024-02-16] MEDS ORDERED: ONDANSETRON 4 MG/2 ML VIAL IVP PRN (10:39)
[2024-02-16] MEDS ORDERED: HYDROmorphone 1 MG/ML 1 ML SYRINGE IVP PRN (10:39)
--- NOTE | 2024-02-16 11:11 | P.OP ---
Date of Procedure: 02/16/24 Preoperative Diagnosis: 1. L4-5 GRADE I SPONDYLOLISTHESIS 2. L4-S1 SPONDYLOSIS WITH STENOSIS 3. DEGENERATIVE DISC DISEASE L4-S1 4. LE RADICULOPATHY 5. LOW BACK PAIN Postoperative Diagnosis: 1. L4-5 GRADE I SPONDYLOLISTHESIS 2. L4-S1 SPONDYLOSIS WITH STENOSIS 3. DEGENERATIVE DISC DISEASE L4-S1 4. LE RADICULOPATHY 5. LOW BACK PAIN Procedure(s) Performed: 1. L4-5 POSTEROLATERAL AND INTERBODY FUSION (76204) 2. L5-S1 POSTEROLATERAL AND INTERBODY FUSION (53031) 3. L4-S1 SEGMENTAL INSTRUMENTATION (71413) 4. L4-5 AND L5-S1 LAMINECTOMY, FACETECTOMY AND FORAMINOTOMY FOR NEURAL DECOMPRESSION AND CAGE PLACEMENT (11616, 19484) 5. INSERTION OF BIOMECHANICAL DEVICES L4-5, L5-S1, CAGES X2 (36833L1) 6. USE OF [employer] NAVIGATION FOR ASSISTANCE IN ACCURATE PLACEMENT OF SCREWS (73660) USE OF IONM: ALL SCREWS TESTING > 20 mA USE OF IO MICROSCOPE Implants: -RIVAS EVEREST RODS AND SCREWS -GLOBUS SABLE CAGES 10 MM 7-14MM 15 DEG -ARTHROCELL, ALLOCELL, CONTOUR, MAGNATOS, AUTOGRAFT Anesthesia: GETA Surgeon: Anuel Sarabia Sales Branch Manager #1: Josey East (WAS PRESENT AND ASSISTED WITH ALL ASPECTS OF THE CASE FROM POSITION TO DRESSING PLACEMENT) Estimated Blood Loss (ml): 150 IV fluids (ml): 1,500 Urine output (ml): 350 Pathology: none sent Condition: stable Disposition: PACU Indications for Procedure: Ms. Grove returns today for her preoperative visit. She continues to experience severe low back pain, radiating into her lower extremities, with associated paresthesias and progressive weakness. Her symptoms have not improved with conservative measures, including physical therapy, home exercises, and medications. Physical Examination: Exam findings remain unchanged from the previous visit. Notable findings include: * Restricted lumbar range of motion with pain Positive straight leg raise test Decreased strength in lower extremities, particularly in dorsiflexion, plantar flexion, and extensor/flexor hallucis longus Decreased sensation in L4-L5 and L5-S1 dermatomes bilaterally Imaging Review: Recent MRI and X-rays were reviewed, confirming severe L4-S1 spo ndylosis, Grade 1 spondylolisthesis at L4-L5, and significant central and foraminal stenosis. Surgical Plan: L4-S1 posterolateral and interbody fusion with decompression, minimally invasive approach Surgical Risks Discussion: A comprehensive discussion of surgical risks was conducted with the patient. These include, but are not limited to: * Infection Bleeding Nerve injury or new neurological deficits Dural tear Failure to improve symptoms or recurrence of symptoms Hardware complications Need for further surgery General anesthesia risks The patient expressed understanding of these risks and wishes to proceed with surgery. Medical Necessity: Ms. Grove has failed conservative management for her severe lumbar spondylosis and spondylolisthesis. She demonstrates progressive neurological deficits and significant impact on her activities of daily living. Imaging studies confirm severe structural changes that correlate with her clinical presentation. Given the progression of her condition and the potential for further neurological deterioration, surgical intervention is deemed medically necessary to decompress neural elements, stabilize the affected segments, and potentially halt the progression of her symptoms. Plan: * Proceed with L4-S1 posterolateral and interbody fusion with decompression, minimally invasive, as scheduled Patient to complete preoperative clearances and testing as previously arranged Provided patient with preoperative instructions and reviewed postoperative care expectations Patient to call with any questions or concerns prior to surgery The patient verbalized understanding of all discussions and agreed to the surgical plan. Description of Procedure: L4-S1 TN POSTEROLATERAL AND INTERBODY FUSION The patient was seen and examined in the preoperative area. All preoperative protocols were followed. Informed consent was obtained, risks and benefits of the procedure were discussed at length. Risks including bleeding infection damage to the surrounding tissue and risk of reoperation were discussed with the patient. Risk of anesthesia up to and including was discussed with the patient. These are outlined in the risk review. They were willing to accept these risks and all the risks of surgery. The patient was given a weight-based dose of antibiotics in the form of 2 g Ancef. The patient was seen and evaluated by the anesthesia team who deemed them fit for surgery. The site was marked, the patient was willing to proceed with the procedure. The patient was transferred to the operative suite by the Department of anesthesia. They were then drifted off to sleep by the department anesthesia and GETA was performed. The patient tolerated this well. Quiros catheter was placed by nursing staff, a-traumatically. Once confirmation of lines and ventila tion the patient was transferred to a prone Harry table very carefully. All bony prominences including wrists, elbows, axilla, chest, hips, and thighs, and feet were padded very well. Special attention was paid to the genitalia, and these were padded accordingly. SCDs were placed on bilateral lower extremities and were connected. Arms were well padded and placed on arm boards up and out in the 90/90 position. Once in position, again we confirmed good ventilation capabilities and that lines were running appropriately. The patients Lumbar spine was then exposed. 1010s were placed outlining the incision site. Standard alcohol was used to clean the incision site and allowed to dry. C-arm was used to needle localize the pedicles at L4-S1 and bio-yin the patient and confirm level for incision which was marked with a skin marker. Operative briefing was performed with all teams and everyone in agreement to proceed. The patient was then prepped and draped in a normal sterile fashion. Timeout was then performed, and all parties agreed with the procedure to be performed. Skin nicks were made over the PSIS on the right-hand side and pins were placed for the [employer] navigation probe tracker tracker was secured and a 3D C arm spin was obtained and registered and confirmed to be accurate. Once this was accomplished Socialspielshidi was then used to plan out skin incisions paramedian skin incisions were made and Jamshidi was taken down and use to plan screws we then using [employer] navigation. Navigated high-speed bur was then used to make steamboat pilot hole followed by a navigated Jamshidi which was placed into L4-S1 bilaterally wires were then placed to hold position. On the right-hand side screws were then placed over wires using lateral fluoroscopy guidance once the screw was at the back of the body wire was removed. The screws were confirmed to be in good position on AP and lateral. We then tested screws and they all tested above 20 mA. Attention was then turned to interbody fusion at L5-S1. Tubular retractor system was placed at the interspace of L5-S1 using a biplanar c arm. Once in position and dilated up to 26mm tube it was locked to the bed and confirmed in g ood position. Microscope was then brought in for visualization. Limited myomectomy was performed and laminectomy, complete facetectomy and foraminotomy performed at L5-S1 using high speed ruben and Kerrison rongeur. The ligamentum was removed and the dural sac decompressed. Exiting and traversing roots visualized and decompressed. Neural elements were then protected, and disc space accessed with an osteotome. Sequential shaving then done under lateral imaging and complete discectomy performed using teresa, pituitary and curette. Once good bleeding endplates accomplished and good height yarsanism with trials, a combination of autograft, allograft and synthetic placed anterior in the disc space. The cage was then selected and impacted into place under lateral imaging. The cage was then expanded restoring height, lordosis and alignment. The cage was backfilled with bone graft through a funnel. The drawing supervisor was removed and the area inspected. Good cage placement, stable cage a nd no injuries. Area was irrigated copiously, and meticulous hemostasis achieved. The tubular retractor was then removed under direct visualization. Attention was then turned to interbody fusion at L4-5. Tubular retractor system was placed at the interspace of L4-5 using a biplanar c arm. Once in position and dilated up to 26mm tube it was locked to the bed and confirmed in good position. Microscope was then brought in for visualization. Limited myomectomy was performed and laminectomy, complete facetectomy and foraminotomy performed at L4-5 using high speed ruben and Kerrison rongeur. The ligamentum was removed and the dural sac decompressed. Exiting and traversing roots visualized and decompressed. Neural elements were then protected, and disc space accessed with an osteotome. Sequential shaving then done under lateral imaging and complete discectomy performed using teresa, pituitary and curette. Once good bleeding endplates accomplished and good height yarsanism with trials, a combination of autograft, allograft and synthetic placed anterior in the disc space. The cage was then selected and impacted into place under lateral imaging. The cage was then expanded restoring height, lordosis and alignment. The cage was backfilled with bone graft through a funnel. The drawing supervisor was removed and the area inspected. Good cage placement, stable cage and no injuries. Area was irrigated copiously, and meticulous hemostasis achieved. The tubular retractor was then removed under direct visualization. Screws were then selected and placed over the previously placed wires on the right side. This was done in the fashion described above. Screws were then tested, and all tested above 20 mA. AP and lateral confirm good placement of screws. Greg length was then measured, and rods selected. They were then placed through the MIS tabs, subfascial. These were then locked into place with set screws and finally tightened. Greg holders removed and images taken showing good placement of rods, good lordosis and yarsanism of height. Tabs were broken off. Wounds were then copiously irrigated with NSS. [place] used for TP decortication and mixture of MagnatOs, allograft and autograft packed posterolateral. The wounds were irrigated copiously with normal sterile saline. Deep fascia was then closed with an 0 Vicryl. Deep subcu tissues closed with 0 Vicryl superficial subcu tissue closed with 2-0 Vicryl. Skin was closed with stitches and skin eris. Wound edges approximated very well. The wound was then cleaned with alcohol and dressed sterilely with Adaptic 4 x 4's and Tegaderms. The patient was then transferred off the table back to their hospital bed a- traumatically. They were extubated by the department of anesthesia. They were then transferred to PACU in stable condition having tolerated the procedure with no complications.
[2024-02-16] MEDS: HYDROmorphone 0.5 MG/0.5 ML SYRINGE IVP PRN (11:18)
--- NOTE | 2024-02-16 11:37 | FL ---
EXAMINATION TYPE: FL guidance operating room, XR lumbar spine 2 or 3V DATE OF EXAM: 02/16/2024 11:10 AM COMPARISON: Pre Operative Images if available both CT/MRI or plain film CLINICAL INDICATION: Female, 68 years old with history of LUMBAR FUSION; TECHNIQUE: FL guidance operating room, XR lumbar spine 2 or 3V, multiple fluoroscopic images provided for procedure. Total fluoroscopy time: 1.15 minutes Total submitted images to PACS: 3 DAP: 1011.88 mGym2 Gycm2 uGym2 cGycm2 or equivalent. FINDINGS: Fluoroscopic images during internal fixation/arthroplasty demonstrate fixation hardware in appropriat e position. Hardware appears intact. No immediate complication identified. IMPRESSION: 1. No evidence for intraoperative complication. 2. Please see the operative/procedural note for further details. [facility], , 02/16/2024 11:34 AM
[2024-02-16] MEDS: KETOROLAC 15 MG/ML 1 ML VIAL IVP SCH (15:56)
--- NOTE | 2024-02-16 16:36 | P.CONS ---
History of Present Illness - Reason for Consult Consult date: 02/16/24 - History of Present Illness Patient is a 68-year-old female with history of dyslipidemia, hypertension, depression/anxiety, GERD, overactive bladder presenting for elective minimally invasive posterior lateral and interbody fusion of L4-S1. Currently temperature is 97.5, pulse 75, respiratory rate 15, blood pressure 102/62, saturating at 95% on 2 L. No laboratory workup available at the moment. [facility] [place] physicians consulted for medical management. Denies any new complaints at the moment. Occasional alcohol use, denies any smoking. Pertinent positives and negatives as discussed in HPI, a complete review of systems was performed and all other systems are negative. Patient seen and examined at bedside. Vital signs reviewed General: nontoxic, no distress, appears at stated age Derm: warm, dry, back dressing not observed Head: atraumatic, normocephalic, symmetric Eyes: EOMI, no lid lag, anicteric sclera, pupils equal round reactive to light ENT: Nose and ears atraumatic Neck: No thyromegaly, supple Mouth: no lip lesion, mucus membranes moist Cardiovascular: S1S2 reg, no murmur, no edema Lungs: clear to auscultation bilateral, no rhonchi, no rales, no wheeze, no accessory muscle use Abdominal: soft, nontender to palpation, no guarding, no appreciable organomegaly Ext: no gross muscle atrophy, muscle strength muscle strength 5 out of 5 in all 4 extremities, no contractures Neuro: CN II-XII grossly intact Psych: Alert, oriented, appropriate affect Assessment/Plan: Active: Hypertension -Continue bisoprolol 5, hold hydrochlorothiazide Depression -Continue with citalopram 40 Dyslipidemia -Continue rosuvastatin 10, fenofibrate 134 GERD -Continue rabeprazole 20 Overactive bladder -Continue Solifenacin 10 Status post lumbar surgery -Oral [place] as needed, IV Dilaudid as needed, monitor for sedation IV Toradol 15 every 6 hours delete that -DVT prophylaxis and bowel regimen per orthopedic surgery -CBC and BMP tomorrow Thank you for allowing us to participate in the care of this pleasant patient. Do not hesitate to contact us with questions. Someone can be reached from the [facility] [place] hospitalist group all hours of the day at [phone] or via [employer]. Past Medical History Past Medical History: GERD/Reflux, Hyperlipidemia, Hypertension Additional Past Medical History / Comment(s): OVERACTIVE BLADDER. History of Any Multi-Drug Resistant Organisms: None Reported Past Surgical History: Appendectomy, Hysterectomy, Orthopedic Surgery Additional Past Surgical History / Comment(s): SINUS SURGERY, RHINOPLASTY, COLONOSCOPY, TONGUE SURGERY, BILATERAL ROTATOR CUFF REPAIR. Past Anesthesia/Blood Transfusion Reactions: No Reported Reaction Additional Past Anesthesia/Blood Transfusion Reaction / Comm: No problems with prior blood transfusion. Sister slow to wake up. Past Psychological History: Anxiety Smoking Status: Former smoker Past Alcohol Use History: Occasional Additional Past Alcohol Use History / Comment(s): Quit smoking 2014, smoked ABOUT 3 CIGARETTES DAILY SINCE AGE 20. Past Drug Use History: None Reported - Past Family History Mother Family Medical History: Cancer Additional Family Medical History / Comment(s): BREAST CANCER. Brother(s) Family Medical History: Deep Vein Thrombosis (DVT) Medications and Allergies Home Medications Medication Instructions Recorded Confirmed Type Cholecalciferol [Vitamin D3 (25 50 mcg PO BID 12/19/18 02/16/24 History Mcg = 1000 Iu)] Bisoprolol-Hctz 5-6.25 mg [Ziac 1 tab PO QAM 03/02/21 02/16/24 History 5-6.25 MG] Solifenacin Succinate [Vesicare] 10 mg PO QAM 03/02/21 02/16/24 History Bacillus Coagulans [Digestive 1 tab PO BID 06/12/23 02/16/24 History Advantage Probiotic Chew] Citalopram Hydrobromide [CeleXA] 40 mg PO QAM 06/12/23 02/16/24 History Rosuvastatin [Crestor] 10 mg PO QAM 06/12/23 02/16/24 History Cyanocobalamin (Vitamin B-12) 1,000 mcg PO DAILY 09/27/23 02/16/24 History [Vitamin B-12] Fenofibrate,Micronized 134 mg PO QAM 09/27/23 02/16/24 History [Fenofibrate] RABEprazole SODIUM [Aciphex] 20 mg PO QAM 09/27/23 02/16/24 History Allergies Allergy/AdvReac Type Severity Reaction Status Date / Time Tetanus Vaccines and Toxoid Allergy swelling Verified 02/16/24 06:19 [Tetanus Vaccines & Toxoid] at injection site Physical Exam Vitals: Vital Signs Temp Pulse Pulse Resp BP BP Pulse Ox 02/16/24 15:48 97.5 F L 75 15 102/62 95 02/16/24 14:45 66 16 102/51 96 02/16/24 13:45 67 16 104/54 95 02/16/24 13:15 66 16 106/55 95 02/16/24 12:45 64 16 101/53 96 02/16/24 12:30 65 16 102/52 93 L 02/16/24 12:15 66 16 98/52 96 02/16/24 12:00 63 16 111/55 95 02/16/24 11:45 65 16 114/58 94 L 02/16/24 11:28 69 16 111/59 100 02/16/24 11:13 69 16 117/56 02/16/24 10:58 65 16 120/63 02/16/24 10:43 98 F 75 16 123/64 97 02/16/24 06:20 97.3 F L 68 18 121/56 97 Intake and Output 02/16/24 02/16/24 02/16/24 06:59 14:59 22:59 Intake Total 200 1900 Output Total 420 Balance 200 1480 Intake: IV 200 1900 Output: Urine 270 Estimated Blood Loss 150 Other: Weight 88.2 kg 88.2 kg
--- NOTE | 2024-02-16 20:52 | CT ---
EXAMINATION TYPE: CT lumbar spine wo con DATE OF EXAM: 02/16/2024 8:22 PM COMPARISON: CLINICAL INDICATION: Female, 68 years old with history of s/p L4-S1 MIS TLIF; PHH, s/p L4-S1 MIS TLIF . TECHNIQUE: Unenhanced CT of the lumbar spine was performed. Bone and soft tissue window settings are submitted as well as coronal and sagittal reconstructions. CT DLP: 1266.[address] CTDI: mGy Automated exposure control for dose reduction was used. FINDINGS: L1-L2: Normal disc space height. No disc herniation protrusion or central stenosis. No facet joint arthropathy. No evidence for foraminal encroachment. L2-L3: Normal disc space height. No disc herniation protrusion or central stenosis. No facet joint arthropathy. No evidence for foraminal encroachment. L3-L4: Mild disc space narrowing posteriorly as well. While effacing the ventral thecal sac. No evide nce of herniation or central stenosis. No evidence for foraminal encroachment. L4-L5: Postoperative changes of lumbar laminectomy. Pedicular screws in place as well as an intervert ebral body spacer. There is 5 mm anterolisthesis L4 on L5. Postsurgical soft tissue changes are evide nt. Streak artifact limits the study. L5-S1: Postoperative changes noted of fusion. Pedicular screws in place. Intervertebral body spacer n oted. Alignment stable from 11/21/2023. Streak artifact limits portions of the study. Postsurgical sof t tissue changes noted. IMPRESSION: Postoperative changes as noted at L4-5 and L5 1 as discussed. [facility], , 02/16/2024 8:50 PM
[2024-02-17] MEDS: HYDROcodone/APAP 5-325MG 1 EACH TAB PO PRN (05:52)
[2024-02-17] MEDS: PANTOPRAZOLE 40 MG TABLET PO SCH (06:38)
[2024-02-17] MEDS: CITALOPRAM HYDROBROMIDE 20 MG TAB PO SCH (09:53)
[2024-02-17] MEDS: ATORVASTATIN 20 MG TAB PO SCH (09:53)
[2024-02-17] MEDS: SENNOSIDES-DOCUSATE SODIUM 1 EACH TAB PO SCH (09:55)
[2024-02-17] MEDS: TROSPIUM CHLORIDE 20 MG TABLET PO SCH (09:55)
[2024-02-17] MEDS: HYDROcodone/APAP 10-325MG 1 EACH TAB PO PRN (09:56)
[2024-02-17] MEDS: BISOPROLOL 5 MG TAB PO SCH (09:56)
[2024-02-17] MEDS: FENOFIBRATE 160 MG TAB PO SCH (09:57)
[2024-02-17 10:33] LABS: Basophils # (A) 0.02 X 10*3/uL (0.00-0.10); Basophils % (A) 0.3 %; Eosinophils # (A) 0.01 X 10*3/uL (0.04-0.35); Eosinophils % (A) 0.1 %; HCT 28.1 % (37.2-46.3); HGB 9.6 g/dL (12.0-15.0); Lymphocytes # (A) 1.29 X 10*3/uL (0.90-5.00); Lymphocytes % (A) 17.9 %; MCH 28.2 pg (27.0-32.0); MCHC 34.2 g/dL (32.0-37.0); MCV 82.6 FL (80.0-97.0); Mean Platelet Volume 10.3 FL (9.5-12.2); Monocytes # (A) 0.67 X 10*3/uL (0.20-1.00); Monocytes % (A) 9.3 %; NRBC Per 100 WBC 0 X 10*3/uL (0.00-0.01); Neutrophils # (A) 5.17 X 10*3/uL (1.80-7.70); Platelet Count 166 X 10*3/uL (140-440); RDW 12.9 % (11.5-14.5); WBC 7.19 X 10*3/uL (4.50-10.00)
[2024-02-17 10:47] LABS: BUN/Creat Ratio 14.91 Ratio (12.00-20.00); Blood Urea Nitrogen 16.4 mg/dL (9.0-27.0); Calcium 8.5 mg/dL (8.7-10.3); Chloride 104 mmol/L (96-109); Glucose 107 mg/dL (70-110); Potassium 3.9 mmol/L (3.5-5.5); Sodium 136 mmol/L (135-145)
--- NOTE | 2024-02-17 10:52 | P.PN ---
Subjective Progress Note Date: 02/17/24 Principal diagnosis: L4-S1 spondylosis with stenosis Bilateral lower extremity radiculopathy with weakness Patient seen and examined this morning. Patient is sitting up in chair at bedside. She does report that her pain is managed on current regimen. Surgical incisions to the lumbar spine, edges are well approximated with eris intact. New dressings have been applied. LSO brace is at bedside, informed patient that physical therapy will be and work with her today. Patient does report that she does have a walker at home. Discussed with patient that she may go home later today versus tomorrow pending how she is doing this afternoon. Continue to encourage patient to be up in chair with all meals and utilize incentive spirometer 10x/hr while awake. No acute concerns. Objective - Vital Signs Vital signs: Vital Signs Temp 98.9 F 02/17/24 01:45 Pulse 74 02/17/24 01:45 Resp 17 02/17/24 01:45 BP 92/47 02/17/24 01:45 Pulse Ox 97 02/17/24 01:45 FiO2 Intake & Output 02/16/24 02/17/24 02/17/24 18:59 06:59 18:59 Intake Total 1900 Output Total 420 475 Balance 1480 -475 Weight 88.2 kg Intake: IV 1900 Output: Urine 270 475 Estimated Blood Loss 150 Other: Voiding Method Indwelling Catheter - Exam Physical Examination General: The patient is awake and alert, in no acute distress Skin: Skin is warm and dry with no obvious rashes or lesions. Surgical incisions to the lumbar spine, Edges are well approximated with eris intact. New dressings applied. Neck: The neck is supple, there is no tenderness and ROM intact. Cardiovascular: There is a regular rate and rhythm. Respiratory: Respirations are non-labored.. Gastrointestinal: Soft, non-distended, non-tender abdomen. Back: There is no tenderness to palpation in the midline, paralumbar, parathoracic or buttocks region. There is no obvious deformity. Musculoskeletal: ROM limited secondary to pain and stiffness from surgical procedure. Right: shoulder abduction 5/5, elbow flexors 5/5, wrist dorsiflexors 5/5. finger abductor 5/5, protohistorian 5/5, hip flexor 4/5, knee flexor 4/5, ankle dorsiflexor 5/5, ankle plantarflexion 5/5 and extensor hallucis 5/5. Left: shoulder abduction 5/5, elbow flexors 5/5, wrist dorsiflexors 5/5. finger abductor 5/5, protohistorian 5/5, hip flexor 4/5, knee flexor 4/5, ankle dorsiflexor 5/5, ankle plantarflexion 5/5 and extensor hallucis 5/5. Neurological: CN 2-12 intact. There are no obvious motor or sensory deficits. Movement and coordination equal and intact. Sensory exam to light touch intact C5-T1 and intact from L2-S1. Reflexes 2/4 in bilateral upper and lower extremities. Negative Hoffmans, babinski, and clonus signs. Psychiatric: Cooperative, appropriate mood & affect, normal judgment. - Labs CBC & Chem 7: 02/17/24 06:52 Assessment and Plan Assessment: Postop day 1: L4-S1 posterolateral and interbody fusion with decompression, min imally invasive Plan: -Appreciate sourcing consultant and team management. -Activity: Ambulate QID, OOB all meals, up and about, limit lifting bending twisting to less than 5 lbs. Use walker or cane if needed for stability. -Daily PT/OT, increase ambulation strength and balance. -Brace when up and about, not needed in bed or chair -Pain control: Adequate at this time -Meds: reviewed -GI ppx: senna, Miralax -DVT PPX: Aspirin 81mg daily -Hygiene: Maintain incision clean and dry. May change dressing as needed, please document in notes if perfromed. Meticulous cleaning after BMs away from the incision site -Encourage IS 10x/hr -Dispo: Anticipate discharge home with homecare later today versus tomorrow *I reviewed and discussed this case with my attending Dr. Sarabia, whom has reviewed this chart and films and is in agreement with assessment and plan of care as outlined above. I have personally seen and examined the patient, performed the documentation and the assessment and plan as written. Number of minutes spent on the visit: 20m.
--- NOTE | 2024-02-17 14:01 | P.PN ---
Subjective Progress Note Date: 02/17/24 Subjective: Patient seen and examined at bedside. No acute events overnight. Pertinent positives and negatives as discussed above, a complete review of systems was performed and all other systems are negative. Vitals Signs Reviewed. General: [nontoxic], [no distress], [appears at stated age] Derm: [warm], [dry], back dressing not observed Head: [atraumatic], [normocephalic], [symmetric] Eyes: [EOMI], [no lid lag], [anicteric sclera] Mouth: [no lip lesion], [mucus membranes moist] Cardiovascular: [S1S2 reg], [no murmur] Lungs: [CTA bilateral], [no rhonchi, no rales] , [no accessory muscle use] Abdominal: [soft], [ nontender to palpation], [no guarding], [no appreciable organomegaly] Ext: [no gross muscle atrophy], [no edema], [no contractures] Neuro: [ CN II-XI grossly intact], [no focal neuro deficits] Psych: [Alert], [oriented], [appropriate affect] Data Reviewed Today: Pertinent Labs: WBC 7.19, hemoglobin 9.6, creatinine 1.1 Imaging: No new imaging Assessment and Plan: Hypertension -Continue bisoprolol 5, hold hydrochlorothiazide Depression -Continue with citalopram 40 Dyslipidemia -Continue rosuvastatin 10, fenofibrate 134 GERD -Continue rabeprazole 20 Overactive bladder -Continue Solifenacin 10 Status post lumbar surgery Acute blood loss anemia, anticipated outcome of surgery -Oral [place] as needed, IV Dilaudid as needed, monitor for sedation IV Toradol 15 every 6 hours delete that -DVT prophylaxis and bowel regimen per orthopedic surgery Patient is otherwise medically optimized for discharge Thank you for allowing us to participate in the care of this pleasant patient. Do not hesitate to contact us with questions. Someone can be reached from the [facility] hospitalist group all hours of the day at [phone] or via perfect serve. Objective - Vital Signs Vital signs: Vital Signs Temp 98.6 F 02/17/24 07:58 Pulse 77 02/17/24 12:27 Resp 18 02/17/24 12:27 BP 99/58 02/17/24 12:27 Pulse Ox 95 02/17/24 12:27 FiO2 Intake & Output 02/16/24 02/17/24 02/17/24 18:59 06:59 18:59 Intake Total 1900 Output Total 420 475 Balance 1480 -475 Weight 88.2 kg Intake: IV 1900 Output: Urine 270 475 Estimated Blood Loss 150 Other: Voiding Method Indwelling Catheter # Voids 1 - Labs CBC & Chem 7: 02/17/24 06:52 02/17/24 06:52 Labs: Abnormal Lab Results - Last 24 Hours (Table) 02/17/24 02/17/24 Range/Units 06:52 06:52 RBC 3.40 L (4.10-5.20) X 10*6/uL Hgb 9.6 L (12.0-15.0) g/dL Hct 28.1 L (37.2-46.3) % Eosinophils # 0.01 L (0.04-0.35) X 10*3/uL Est GFR (CKD-EPI) 55 L (>=60) Calcium 8.5 L (8.7-10.3) mg/dL
--- NOTE | 2024-02-18 07:13 | P.PN ---
Subjective Progress Note Date: 02/18/24 Principal diagnosis: L4-S1 spondylosis with stenosis Bilateral lower extremity radiculopathy with weakness Patient seen and examined this morning. Patient is resting comfortably in bed. She does report that her pain is managed on current regimen. Surgical incisions to the lumbar spine, edges are well approximated with reis intact. LSO brace is at bedside. Patient did work with physical therapy and tolerated activity well. Patient does state that she feels safe going home later today. Discharge instructions have been discussed. Continue to encourage patient to be up in chair with all meals and utilize incentive spirometer 10x/hr while awake. No acute concerns. Objective - Vital Signs Vital signs: Vital Signs Temp 98.9 F 02/18/24 02:00 Pulse 80 02/18/24 02:00 Resp 15 02/18/24 02:00 BP 111/68 02/18/24 02:00 Pulse Ox 92 L 02/18/24 02:00 FiO2 Intake & Output 02/17/24 02/17/24 02/18/24 06:59 18:59 06:59 Output Total 475 Balance -475 Output: Urine 475 Other: Voiding Method Indwelling Catheter Toilet # Voids 4 - Exam Physical Examination General: The patient is awake and alert, in no acute distress Skin: Skin is warm and dry with no obvious rashes or lesions. Surgical incisions to the lumbar spine, dressings are clean dry and intact Neck: The neck is supple, there is no tenderness and ROM intact. Cardiovascular: There is a regular rate and rhythm. Respiratory: Respirations are non-labored.. Gastrointestinal: Soft, non-distended, non-tender abdomen. Back: There is no tenderness to palpation in the midline, paralumbar, parathoracic or buttocks region. There is no obvious deformity. Musculoskeletal: ROM limited secondary to pain and stiffness from surgical procedure. Right: shoulder abduction 5/5, elbow flexors 5/5, wrist dorsiflexors 5/5. finger abductor 5/5, lacquer dipping machine operator 5/5, hip flexor 4/5, knee flexor 4/5, ankle dorsiflexor 5/5, ankle plantarflexion 5/5 and extensor hallucis 5/5. Left: shoulder abduction 5/5, elbow flexors 5/5, wrist dorsiflexors 5/5. finger abductor 5/5, lacquer dipping machine operator 5/5, hip flexor 4/5, knee flexor 4/5, ankle dorsiflexor 5/5, ankle plantarflexion 5/5 and extensor hallucis 5/5. Neurological: CN 2-12 intact. There are no obvious motor or sensory deficits. Movement and coordination equal and intact. Sensory exam to light touch intact C5-T1 and intact from L2-S1. Reflexes 2/4 in bilateral upper and lower extrem ities. Negative Hoffmans, babinski, and clonus signs. Psychiatric: Cooperative, appropriate mood & affect, normal judgment. - Labs CBC & Chem 7: 02/17/24 06:52 02/17/24 06:52 Labs: Abnormal Lab Results - Last 24 Hours (Table) 02/17/24 02/17/24 Range/Units 06:52 06:52 RBC 3.40 L (4.10-5.20) X 10*6/uL Hgb 9.6 L (12.0-15.0) g/dL Hct 28.1 L (37.2-46.3) % Eosinophils # 0.01 L (0.04-0.35) X 10*3/uL Est GFR (CKD-EPI) 55 L (>=60) Calcium 8.5 L (8.7-10.3) mg/dL Assessment and Plan Assessment: Postop day 2: L4-S1 posterolateral and interbody fusion with decompression, minimally invasive Plan: -Appreciate window covering sales consultant and team management. -Activity: Ambulate QID, OOB all meals, up and about, limit lifting bending twisting to less than 5 lbs. Use walker or cane if needed for stability. -Daily PT/OT, increase ambulation strength and balance. -Brace when up and about, not needed in bed or chair -Pain control: Adequate at this time -Meds: reviewed -GI ppx: senna, Miralax -DVT PPX: Aspirin 81mg daily -Hygiene: Maintain incision clean and dry. May change dressing as needed, please document in notes if performed. Meticulous cleaning after BMs away from the incision site -Encourage IS 10x/hr -Dispo: Discharge home with home care later today. *I reviewed and discussed this case with my attending Dr. Sarabia, whom has reviewed this chart and films and is in agreement with assessment and plan of care as outlined above. I have personally seen and examined the patient, performed the documentation and the assessment and plan as written. Number of minutes spent on the visit: 20m.
--- NOTE | 2024-02-18 07:17 | P.DS ---
Providers Date of admission: 02/16/24 Expected date of discharge: 02/18/24 Attending physician: Anuel Sarabia DO Consults: 02/16/24 10:39 Consult Physician Routine Consulting Provider: Ananth Jackson Reason/Comments: medical management Do you want consulting provider notified?: Yes Primary care physician: Bianca Cesar MD Hospital Course: Hospital Course: The patient was evaluated preoperatively and found to have the diagnosis of lumbar spondylosis with stenosis. They underwent appropriate preoperative care and were willing to undergo the intended procedure. They underwent a successful L4-S1 minimally invasive PLIF, were recovered appropriately and sent to the floor. While on the floor they worked with physical therapy, occupational therapy and nursing to enhance their recovery experience. Their pain was well controlled through their stay and they were started on appropriate medications, DVT ppx modalities, activity and dietary needs. Daily labs were monitored closely, and transfusions were only used when necessary. Medicine as well as other consulting services have made their input and have helped with our team approach and multidisciplinary care. PT milestones have been met and passed and they have made the recommendation of home with home care for this patient and treating providers agree with this care path. The patient will be discharged home with appropriate medications, instructions and follow-up information and in stable condition. Patient Condition at Discharge: Good Plan - Discharge Summary Discharge Rx Participant: Yes New Discharge Prescriptions: New cefaDROXiL [Duricef] 500 mg PO Q12HR #10 cap Cyclobenzaprine [Flexeril] 5 mg PO TID PRN #40 tablet PRN Reason: Muscle Spasm HYDROcodone/APAP 10-325MG [[place] 10-325] 1 tab PO Q4-6H PRN #40 tab PRN Reason: Pain Sennosides/Docusate Sodium [Senna Plus 8.6-50 mg Tablet] 1 each PO DAILY PRN #20 tab PRN Reason: Constipation No Action Cholecalciferol [Vitamin D3 (25 Mcg = 1000 Iu)] 50 mcg PO BID Citalopram Hydrobromide [CeleXA] 40 mg PO QAM Bisoprolol-Hctz 5-6.25 mg [Ziac 5-6.25 MG] 1 tab PO QAM Solifenacin Succinate [Vesicare] 10 mg PO QAM Bacillus Coagulans [Digestive Advantage Probiotic Chew] 1 tab PO BID Rosuvastatin [Crestor] 10 mg PO QAM RABEprazole SODIUM [Aciphex] 20 mg PO QAM Fenofibrate,Micronized [Fenofibrate] 134 mg PO QAM Cyanocobalamin (Vitamin B-12) [Vitamin B-12] 1,000 mcg PO DAILY Discharge Medication List Cholecalciferol [Vitamin D3 (25 Mcg = 1000 Iu)] 50 mcg PO BID 12/19/18 [History] Bisoprolol-Hctz 5-6.25 mg [Ziac 5-6.25 MG] 1 tab PO QAM 03/02/21 [History] Solifenacin Succinate [Vesicare] 10 mg PO QAM 03/02/21 [History] Bacillus Coagulans [Digestive Advantage Probiotic Chew] 1 tab PO BID 06/12/23 [History] Citalopram Hydrobromide [CeleXA] 40 mg PO QAM 06/12/23 [History] Rosuvastatin [Crestor] 10 mg PO QAM 06/12/23 [History] Cyanocobalamin (Vitamin B-12) [Vitamin B-12] 1,000 mcg PO DAILY 09/27/23 [History] Fenofibrate,Micronized [Fenofibrate] 134 mg PO QAM 09/27/23 [History] RABEprazole SODIUM [Aciphex] 20 mg PO QAM 09/27/23 [History] Cyclobenzaprine [Flexeril] 5 mg PO TID PRN #40 tablet 02/17/24 [Rx] HYDROcodone/APAP 10-325MG [[place] 10-325] 1 tab PO Q4-6H PRN #40 tab 02/17/24 [Rx] Sennosides/Docusate Sodium [Senna Plus 8.6-50 mg Tablet] 1 each PO DAILY PRN #20 tab 02/17/24 [Rx] cefaDROXiL [Duricef] 500 mg PO Q12HR #10 cap 02/17/24 [Rx] Follow up Appointment(s)/Referral(s): Anuel Sarabia DO [Doctor of Osteopathic Medicine] - 2 Weeks Bianca Cesar MD [Primary Care Provider] - 1 Week Activity/Diet/Wound Care/Special Instructions: Spine Discharge and Recovery Instructions Date of Surgery: 02/16/2024 Diagnosis: Lumbar spondylosis Procedure: L4-S1 minimally invasive PLIF Medications: See medication list All medication refills should be obtained through your primary care doctor or your clinic spine surgeon. Please discuss prescription refills at your follow up appointment. Do not call the hospital for medication refills. Activity: Encourage ambulation with assist of walker, Up and about 6-8x daily PT/OT daily work on balance, strength and mobility Up in chair with all meals Shower daily Brace: Use brace when up and about, do not wear in bed or shower Dressing: Leave your dressing in place for a total of 3 days post operatively. Then you may remove your dressing and leave open to air. Keep the area clean and if not able to keep area clean, then cover with sterile gauze and tape. Showering: You may shower 3 days after your procedure allowing soap and water to run over incision. Do not scrub. Do not soak. Blot dry. Follow up: Please confirm a follow up appointment with your surgeon 2 weeks post operatively. Please make an appointment to follow up with your PCP in 1-2 weeks after surgery for evaluation '3 phase, 3-week plan' POST OP WEEKS 1-3 1. Lifting/carrying/pushing/pulling limited to less than 5 pounds. 2. Do not sit for longer than 15 minutes at one time. Get up and walk around. Prolonged sitting is NOT advised. If you lay down, see if you can tolerate laying down on you front (belly side) 3. Walk for periods of 15 minutes = 1 mile but no longer; do it multiple times times each day. 4. Ice your low back after activity. POST OP WEEKS 3-6 1. Lifting limited to less than 20 pounds. 2. Do not sit for longer than 30 minutes at a time. Frequently change positions. Use a sit-to stand workstation or take frequent breaks from sitting if you have returned to work. 3. Walk for 30 minutes each day. If possible, do these three or more times a day POST OP WEEKS 6+ At your 6-week appointment we will give you a physical therapy referral to focus on a core stabilization and strengthening program. You should also work on leg & buttock strengthening, hamstring & quadriceps stretching, and continue a low impact aerobic activity program such as swimming, walking, or riding a stationary bicycle. During the initial 6 weeks after your surgery, you are at the highest risk of re-injuring your spine. You should generally avoid BLT's (bending, lifting and twisting combination motions) and follow the above guidelines to reduce the chance of reinjury. You can anticipate post op appointments in our office at approximately 3 weeks and 6 weeks after your surgery. INCISION CARE: If your incision is not draining you do NOT need to cover it with a dressing. Keep your incision clean, dry and intact. In most cases, we apply skin glue, eris or sutures to the incision at the time of surgery. This will be like a crust or have the appearance of a scab and will fall off in time on its own. The stitches or eris need to be removed at 3 weeks post op appointment. You may begin to shower 3 days after surgery (this allows the glue to saleh well). However, please avoid scrubbing the incision site or peeling off any of the skin glue. This will ensure optimal healing of your incision. Also, during this time avoid soaking the incision area in water - this includes swimming pools, hot tubs or baths. No ointments, lotions or oils on the incision until your surgeon allows. Leave eris, sutures or glue in place. Neurological dysfunction that comes on suddenly can also be a sign of a stroke. Below some common symptoms of a stroke are listed: B - balance difficulty such as sudden onset walking or leaning to one side - NEW E - eye problem such as sudden double vision or trouble seeing on one side - NEW F - Facial weakness or numbness on one side - NEW A - Arm or leg weakness or numbness on one side - NEW S - Slurred speech or difficulty with word finding - NEW T - Time is BRAIN! Call 911 as soon as you recognize these symptoms Diet: Consume a regular diet rich in vegetables and lean protein such as chicken or fish. You should consume in a ratio of approximately 20% fats|40% carbohydrates|40%protein. Vegetables, sweet potatoes, brown rice or quinoa are examples of good carbohydrates. Chips, white bread, cookies and sweets/sugar are examples of bad carbohydrates. Limit your bad carbs, go wild with good carbs. "Life's Simple 7" Guidelines as per [place] [employer] These will help you reclaim your life after surgery and cocoa bean roaster helper in your recovery, keeping in mind your restrictions. (1) Get Active. Physical activity can help people lose weight, control high blood pressure and cholesterol, feel emotionally better, and sleep better. (2) Control Cholesterol. Avoid a diet high in saturated fat, trans fat, & cholesterol. Limit whole milk & cream, ice cream, butter, egg yolks, processed meats (like sausage and hot dogs), and fatty meats. Choose healthy foods that are low in saturated fat, trans fat and cholesterol which include: Fruits and vegetables, fiber rich grain products (like whole grain pasta and brown rice), lean meat such as chicken, fish, nuts, seeds, and legumes. (3) Eat Better. Eat small portions. Shop at the grocery with a list and do no t stray from it. Tips for a healthy diet include: Limit sodium intake to less than 1500mg daily, avoid prepackaged, processed, and fast foods, choose a diet rich in fruits, vegetables, and whole grain, high fiber foods, and limit saturated & cholesterol in your diet. (4) Manage Blood Pressure. If you have high blood pressure, you should have a cuff at home so that you can check your blood pressure regularly. Be sure you have a good cuff. An arm one is generally better than a wrist one. Bring the cuff to a doctor's appointment to validate that the measurements that your cuff are taking are accurate. Take your blood pressure twice daily when you are sitting down and relaxing. Record the numbers in a log and bring this log with you to your doctors' appointments. (5) Lose Weight if your BMI is above 25. A healthy BMI is between 19-25. To calculate Your BMI, you may use a Standard BMI Calculator on the NIH BMI website: <www.nhlbi.nih.gov/guidelines/obesity/BMI/bmicalc.htm>. Weigh oneself daily. If you are overweight, set a goal to lose weight. A pound a week loss if needed is a good target. (6) Reduce Blood Sugar. Limit foods and liquids with "added sugars." (Added sugars include sucrose, fructose, glucose, maltose, dextrose, high fructose corn syrup, corn syrup, concentrated fruit juice and honey). (7) Stop Smoking. If you smoke, quitting smoking is one of the best things that you can do for your health. Smoking increases your risk of heart attack, stroke, and peripheral vascular disease, which is a build-up of plaque in your arteries. Please discard all the cigarettes and lighters in your house. Have a plan for what you will do when you have the urge to smoke. Direct and second- hand smoke shortens your life as well as the lives of your family, friends and others around you. For your health and the health of those around you, please consider quitting! Proper Bending Body Mechanics: Maintain a wide stance with one foot slightly in front of the other. Keep your back straight. Bend utilizing the strength in your hips and knees. Do not bend at the waist. Maintain the lifted object at your waist-level close to your body. Avoid lifting weight that causes immediately pain or pain anywhere in the body afterwards. Smoking/Nicotine If there was ever one thing that you could do to increase your overall health, decrease your risk of cardiovascular problems by about 39% the second you make the choice, it is to STOP SMOKING. Your body's most instant gratification is the second you stop smoking. We have all heard the studies, read the articles but it is true, smoking is extremely bad for your overall health, and moreover it is detrimental to your bone health. Nicotine, IN ANY FORM, kills bone cells, prevents your body from healing fractures, and significantly prolongs healing after surgery. In spine surgery specifically, it increases your risk of not healing your bones to create a fusion and increases your risk of having a revision surgery due to this up to 60%. I know it is hard. I know it feels impossible. But there are ways. Take control of your life. We are here to help you through it. And when you are ready, ask us and we can direct you to help if you desire. Use the START Plan to Quit Smoking (please visit the Helpguide.org website listed below for more information): S = Set a quit date. Choose a date within the next 2 weeks, so you have enough time to prepare without losing your motivation to quit. If you mainly smoke at work, quit on the weekend, so you have a few days to adjust to the change. T = Tell family, friends, and co-workers that you plan to quit. Let your friends and family in on your plan to quit smoking and tell them you need their support and encouragement to stop. Look for a quit ramandeep who wants to stop smoking as well. You can help each other get through the rough times. A = Anticipate and plan for the challenges you'll face while quitting. Most people who begin smoking again do so within the first 3 months. You can help yourself make it through by preparing ahead for common challenges, such as nicotine withdrawal and cigarette cravings. R = Remove cigarettes and other tobacco products from your home, car, and work. Throw away all your cigarettes (no emergency pack!), lighters, ashtrays, and matches. Wash your clothes and freshen up anything that smells like smoke. Shampoo your car, clean your drapes and carpet, and steam your furniture. T = Talk to your doctor about getting help to quit. Your doctor can prescribe medication to help with withdrawal and suggest other alternatives. If you can't see a doctor, you can get many products over the counter at your local pharmacy or grocery store, including the nicotine patch, nicotine lozenges, and nicotine gum. Resources for Quitting Smoking: <https://www.[place].gov/documents/[facility]/Quit_Tobacc o_Resources_for_patients_313480_7.pdf> Supplementation: Take recommended dosages of Vitamin D and Calcium to help fortify your bones and help them to heal. See your health maintenance packet for dosages and recommended levels. DVT/VTE prophylaxis: You will be given compression stockings from the hospital. Wear these daily for the first two weeks after surgery. You may take them off at night. You may be prescribed a medication to help thin your blood. Take this as directed. If you are not prescribed this medication, early and frequent ambulation has been shown to be the best prophylaxis to deep vein thrombosis and sequelae related to this event. Discharge Disposition: HOME WITH HOME HEALTH SERVICES
[2024-02-18 07:38] VITALS: BP 114/51; PULSE 74; RESP 18; TEMP 99.1
[2024-02-18] MEDS: CYCLOBENZAPRINE 5 MG TAB PO PRN (09:11)
== END 2024-02-18 09:33 | disposition home health service (06) ==
LOC: OR 05:34 → 4SSUR 10:30 → OR 02-18 09:33
PROVIDERS: ATTEND Orthopaedic Surgery
DX: M47.817 Spondylosis without myelopathy or radiculopathy, lumbosacral region (principal); M54.17 Radiculopathy, lumbosacral region; M51.379 Other intervertebral disc degeneration, lumbosacral region without mention of lumbar back pain or lower extremity pain; I10 Essential (primary) hypertension; E78.5 Hyperlipidemia, unspecified; K21.9 Gastro-esophageal reflux disease without esophagitis; N32.81 Overactive bladder; Z98.1 Arthrodesis status; Z01.818 Encounter for other preprocedural examination; Z90.49 Acquired absence of other specified parts of digestive tract; Z90.710 Acquired absence of both cervix and uterus; Z80.3 Family history of malignant neoplasm of breast; Z88.7 Allergy status to serum and vaccine
CPT/HCPCS: 80048; 85025; 72100; 72131; 22633; 63052; 22842; 22853; 22859; 20930; 20936; C1713; C1734; J1100; J0690; J2405; J1885; J1171